=== PATIENT | male | born 1985 ===

== ENCOUNTER 2022-09-08 18:47 | Inpatient (IN) | payer OTHER, SELFPAY ==
[2022-09-08 18:54] VITALS: BP 117/94; PULSE 120; RESP 18; TEMP 36.6; O2SAT 95; BMI 25.8
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
[2022-09-08] MEDS: LORazepam 1 MG TABLET 2 MG PO (19:45)
[2022-09-08] MEDS: OLANZapine 10 MG TABLET PO (19:45)
[2022-09-08 20:10] LABS: COVID-19 Test Negative (Negative); IDNOW Serial# 08D9AD1C
[2022-09-09] VITALS (8 sets, daily range): BP systolic 103–131; BP diastolic 60–78; PULSE 75–105; RESP 15–18; TEMP 36.4–36.5; O2SAT 96–100
[2022-09-09] MEDS: LORazepam 1 MG TABLET PO (04:36)
[2022-09-09] MEDS: OLANZapine 10 MG TABLET PO (04:36)
[2022-09-09 04:47] LABS: Basophils Absolute Auto 0.1 X10*3/uL (0.0-0.2); Basophils Percent Auto 0.8 % (0-2); Eosinophils Absolute Auto 0.1 X10*3/uL (0.0-0.4); Hematocrit 47.7 % (42.0-52.0); Hemoglobin 16.2 g/dl (14.0-18.0); Imm Gran Abs Auto 0.08 X10*3/uL (0.00-0.03); Imm Gran Pct Auto 0.7 % (0.0-0.4); Lymphocytes Absolute Auto 3.3 X10*3/uL (1.2-4.9); Lymphocytes Percent Auto 27.3 % (20-40); MANUAL DIFF FLAG NO; Mean Corpuscular Hemoglobin 28.9 pg (27.0-33.0); Mean Corpuscular Volume 85.2 fL (80.0-98.0); Mean Platelet Volume 9.9 fL (9.4-12.4); Monocytes Absolute Auto 1.2 X10*3/uL (0.1-1.2); Monocytes Percent Auto 10.4 % (2-11); Neutrophils Absolute Auto 7.2 x10*3/uL (2.0-8.3); Neutrophils Percent Auto 59.8 % (45-73); Platelet Count 249 X10*3/uL (160-400); Red Cell Distribution Width 13.2 % (11.0-16.0)
--- NOTE | 2022-09-09 04:52 | PC.NURSE ---
Patient at the time arrival was manic, hyper-verbal, pressured speech, loud and disruptive, Olanzapine 10 mg PO and Ativan 2 mg PO administered at 1945 with + effect, slept through the night, woke up at 0415, restless and anxious, Olanzapine 10 mg PO and Ativan 1 mg PO administered @ 0436 with + effect, agreed to blood draw, unable to provide urine sample at tis time, care consult ordered/pending evaluation, VSS, will continue to monitor.
[2022-09-09 05:07] LABS: Alanine Aminotransferase 25 U/L (0-40); Albumin Level 5.1 g/dL (3.5-5.0); Alkaline Phosphatase 75 U/L (39-117); Anion Gap 16 (12-20); Aspartate Amino Transferase 27 U/L (5-37); Bilirubin Total 1.2 mg/dL (0.0-1.0); Blood Urea Nitrogen 37 mg/dL (9-16); Calcium 10.2 mg/dL (8.4-10.2); Carbon Dioxide 25 mmol/L (22-29); Chloride 104 mmol/L (96-108); Creatinine Clr Calc Pharmacy 80.2; Estimated Glomerular Filt Rate > 60; Ethanol < 10 mg/dL; Glucose Random 102 mg/dL (60-115); Potassium 4.1 mmol/L (3.3-5.1); Sodium 141 mmol/L (135-145); Total Protein 7.7 g/dL (6.5-8.0)
[2022-09-09 08:40] LABS: Appearance Urine Turbid; Color Urine Dark Yellow; Glucose Urine UA Negative (Negative); Leukocyte Esterase Urine Small (1+) (Negative); Nitrite Urine Negative (Negative); Specific Gravity - Urine >= 1.030 (1.005-1.025); UMIC TRIGGER UA YES; Urine Blood Large (3+) (Negative); Urine Ketones 15 mg/dL (Negative); Urine Protein 30 (1+) mg/dL (Neg-Trace)
[2022-09-09] MEDS: LORazepam 1 MG TABLET 2 MG PO (08:48)
[2022-09-09 08:49] LABS: Amphetamine Screen Urine POSITIVE (Not Detect); Barbiturates, Urine Not Detected (Not Detect); Benzodiazepines Screen Urine Not Detected (Not Detect); Cannabinoid Screen Urine POSITIVE (Not Detect); Cocaine Screen Urine Not Detected (Not Detect); Fentanyl, urine Not Detected (Not Detect); Opiate Screen Urine Not Detected (Not Detect); Phencyclidine Screen Urine Not Detected (Not Detect)
[2022-09-09 08:53] LABS: Bacteria Urine None Seen (None Seen); Granular Casts Urine Present; Hyaline Casts Urine >20 /LPF (0-2); RBC Urine >20 /HPF (0-2); Squamous Epithelial Cell Urine 0-2 /HPF (0-2); WBC Urine 21-50 /HPF (0-5)
[2022-09-09] MEDS: Haloperidol Lactate 5 MG/ML VIAL IM (09:16)
[2022-09-10] MEDS: OLANZapine ODT 10 MG TAB.RAPDIS TRANSLINGU ×3 (04:02→17:15)
--- NOTE | 2022-09-10 04:11 | PC.NURSE ---
Patient slept through the night, no distress observed/reported, just woke up for bathroom use and started screaming by stating Why I am here , patient disposition explained offered PRN olanzapine 10 mg po/accepted at 0402 with pending effect, mood extremely labile but redirectable, patient's disposition per care team is section 12 inpatient bed search, VSS, medication compliant, will continue to monitor.
[2022-09-10 04:14] VITALS: BP 129/81; PULSE 101; RESP 18; TEMP 36.7; O2SAT 99
--- NOTE | 2022-09-10 07:29 | PC.NURSE ---
Pt awake. Mood has improved. Social with Staff. Requesting anxiety med. PRN not due at this time. Pt able to self-sooth, back to bed watching TV at this time.
--- NOTE | 2022-09-10 08:18 | ECG_ITS ---
Test Reason : CHECK QT Blood Pressure : / mmHG Vent. Rate : 074 BPM Atrial Rate : 074 BPM P-R Int : 120 ms QRS Dur : 084 ms QT Int : 366 ms P-R-T Axes : 040 042 008 degrees QTc Int : 406 ms Normal sinus rhythm with sinus arrhythmia Normal ECG No previous ECGs available Referred By: Nestor Ray Electronically Signed By:Derian Yates
[2022-09-10 10:20] VITALS: BP 154/99; PULSE 115; RESP 16; TEMP 36.9; O2SAT 98
[2022-09-10 15:51] LABS: Appearance Urine Clear; Color Urine Yellow; Glucose Urine UA Negative (Negative); Leukocyte Esterase Urine Trace (Negative); Nitrite Urine Negative (Negative); Specific Gravity - Urine 1.015 (1.005-1.025); UMIC TRIGGER UACC YES; Urine Blood Negative (Negative); Urine Ketones Negative (Negative); Urine Protein Negative (Neg-Trace)
[2022-09-10 15:53] LABS: Bacteria Urine None Seen (None Seen); Hyaline Casts Urine 0-2 /LPF (0-2); RBC Urine 0-2 /HPF (0-2); Squamous Epithelial Cell Urine 0-2 /HPF (0-2); WBC Urine 0-5 /HPF (0-5)
[2022-09-10 16:38] VITALS: BMI 25.1
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
[2022-09-10 17:06] VITALS: BP 126/68; PULSE 82; RESP 16; TEMP 36.4; O2SAT 99
--- NOTE | 2022-09-10 17:10 | PC.NURSE ---
Pt submitted a Three Day Notice on Tuesday09/10/2022 up on Tuesday09/15/2022.
[2022-09-10] MEDS: LORazepam 1 MG TABLET PO (17:15)
[2022-09-11] MEDS: LORazepam 1 MG TABLET PO ×3 (04:44→16:10)
--- NOTE | 2022-09-11 04:46 | PC.NURSE ---
Patient awake pacing in room on 414 safety check. Respectfully, politely requests Benadryl for sleep at 4:35 at nursing station. Very easily agitated when asked how he is feeling I don't do small talk and never will, just get the pill. While removing med patient is heard stating how long does it f---ing take to get a pill, no one knows the system. Patient does not have wrist ID bracelet on, states is allergic to it. When told a new one will be printed, patient storms off to his room agitated. Returns with bracelet for scan. Patient calmly, politely says thank you for meds. Labile, anxious, easily agitated. Ativan administered as prescribed. Patient returns to room.
[2022-09-11 09:15] VITALS: BP 142/73; PULSE 76; RESP 16; TEMP 36.9; O2SAT 98
[2022-09-11] MEDS: OLANZapine ODT 10 MG TAB.RAPDIS TRANSLINGU ×2 (10:44→17:03)
[2022-09-11 12:55] LABS: Glucose, Whole Blood 223 mg/dL (60-115)
[2022-09-11] MEDS: hydrOXYzine HCL 25 MG TABLET PO (17:23)
[2022-09-11] MEDS: chlorproMAZINE HCl 25 MG TABLET 50 MG PO (18:05)
[2022-09-11 18:09] VITALS: BP 147/78; PULSE 109; TEMP 36.6
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
[2022-09-12] MEDS: hydrOXYzine HCL 25 MG TABLET PO ×2 (03:19→16:42)
[2022-09-12] MEDS: OLANZapine ODT 10 MG TAB.RAPDIS TRANSLINGU ×2 (07:26→20:11)
[2022-09-12] MEDS: Acetaminophen 325 MG TABLET 650 MG PO (07:26)
[2022-09-12] MEDS: LORazepam 1 MG TABLET PO ×3 (08:12→21:25)
[2022-09-12 08:42] VITALS: BP 143/93; PULSE 114; RESP 20; TEMP 35.6; O2SAT 97
--- NOTE | 2022-09-12 09:25 | HO.PSYCHPN ---
Subjective Subjective Date of Service: 09/12/22 Reason For Visit: agitation ? sandra Interim History: Patient seen and discussed with the team. Patient was less labile and more organized today. He says the medication is surprisingly smooth. He has been more composed. He says he he has a diagnosis of schizoaffective disorder but he has not been in treatment. Says because the medication is helpful for him he will take it post DC. Denies SI. Review of Systems Review of Systems Yes all other systems are reviewed and are negative Mental Status Exam Mental Status Exam Patient Appearance: Unkempt Patient Orientation: Person, Place and Time Level of Consciousness: Awake, Restless and Inappropriate Patient Behavior: Guarded, Hyperactive, Suspicious, Restless, Anxious, Fearful, Distractible and Good Eye Contact Mood Description: Suspicious, Anxious, Labile and Nervous Affect Description: Suspicious, Anxious, Labile and Nervous Patient Cognition Impaired: No Ability to Follow Directions: Good Speech Pattern: Clear, Coherent, Animated, Loud and Excited Diagnostics Vital Signs (24Hr): Vital Signs - 24 hr 09/11/22 18:09 09/12/22 08:42 Temperature 97.9 F 96.0 F L Pulse Rate 109 H 114 H Respiratory Rate 20 Blood Pressure 147/78 H 143/93 H Pulse Oximetry 97 Oxygen Delivery Method Room Air BMI result Body Mass Index 25.1 Labs 09/09/22 04:43 09/09/22 04:43 Labs: Laboratory Results - last 48 hr 09/10/22 09/11/22 15:37 12:52 POC Glucose 223 H Urine Color Yellow Urine Appearance Clear Urine pH 6.0 Ur Specific [place] 1.015 Urine Protein Negative Urine Glucose (UA) Negative Urine Ketones Negative Urine Blood Negative Urine Nitrite Negative Ur Leukocyte Esterase Trace H Urine RBC 0-2 Urine WBC 0-5 Ur Squamous Epith Cells 0-2 Urine Bacteria None Seen Hyaline Casts 0-2 Medications Medications Current Medications Acetaminophen (Acetaminophen 325 Mg Tablet) 650 mg PO Q6H PRN PRN Reason: Headache/Pain Mild Scale (1-3) Last Admin: 09/12/22 07:26 Dose: 650 mg Al Hydroxide/Mg Hydroxide (Magnesium Hydrox/Alum Hydrox 30 Ml Oral.Susp) 30 ml PO Q6H PRN PRN Reason: Heartburn/Nausea Benzocaine (Benzocaine 20 % Oral Gel 9 Gm Tube) 1 appl MUCOUS MEM QID PRN; Protocol PRN Reason: tooth pain Chlorpromazine HCl (Chlorpromazine Hcl 25 Mg Tablet) 50 mg PO TID PRN PRN Reason: severe anxiety Last Admin: 09/11/22 18:05 Dose: 50 mg Hydroxyzine HCl (Hydroxyzine Hcl 25 Mg Tablet) 25 mg PO Q6H PRN PRN Reason: Anxiety Last Admin: 09/12/22 03:19 Dose: 25 mg Ibuprofen (Ibuprofen 600 Mg Tablet) 600 mg PO Q6H PRN PRN Reason: toothache Lorazepam (Lorazepam 1 Mg Tablet) 1 mg PO TID PRN PRN Reason: anxiety/restlessness Last Admin: 09/12/22 08:12 Dose: 1 mg Magnesium Hydroxide (Milk Of Magnesia 30 Ml Oral.Susp) 30 ml PO DAILY PRN PRN Reason: Constipation Olanzapine (Olanzapine Odt 10 Mg Tab.Rapdis) 10 mg TRANSLINGU BID PRASHANTH Last Admin: 09/12/22 07:26 Dose: 10 mg Allergies Allergies Allergy/AdvReac Type Severity Reaction Status Date / Time No Known Allergies Allergy Verified 09/08/22 18:54 Assessment & Plan Assessment & Plan (1) Sandra: Status: Acute Code(s): F30.9 - Manic episode, unspecified (2) Psychosis: Status: Acute Code(s): F29 - Unspecified psychosis not due to a substance or known physiological condition Assessment and Plan: 37 yo male with reported past history of schizophrenia admitted with bizarre, paranoid and delusional behavior. Plan Admit to [facility] then signed a 3 day noticeInitially Collateral information to clarify past history and treatment Currently on Zyprexa and Ativan PRN. Agrees to take both as scheduled medications. Milieu therapy Discharge planning. 09/12: Continue treatment plan. Reason for continued inpatient stay Substantial Risk for: inability to function and rapid decompensation Time Spent With Patient Time: Total time managing care of this patient today ____ minutes.
[2022-09-12] MEDS: chlorproMAZINE HCl 25 MG TABLET 50 MG PO ×2 (14:34→20:11)
--- NOTE | 2022-09-12 21:19 | PC.NURSE ---
Pt started screaming I want to go home over and over around 2109. Pt would not respond to redirection, screaming at RN, then apologizing. Pt having outburst in group room. Pt offered PRNs and pt declined. Pt asked RN to leave the room, pt kept screaming. Pt eventually stopped screaming, walked down [place] insulting staff saying If you're at capacity the why are you holding me? I'm the sanest one here, I'm saner than most of the staff.... ect. Pt came back a few minutes later apologizing and asked for PRN and was given Ativan. Pt mood is labile, pt will go from laughing to crying to screaming. Will continue to monitor for safety.
[2022-09-13 07:40] VITALS: BP 154/105; PULSE 120; RESP 18; TEMP 36.3; O2SAT 97
[2022-09-13] MEDS: OLANZapine ODT 10 MG TAB.RAPDIS TRANSLINGU (07:48)
[2022-09-13] MEDS: LORazepam 1 MG TABLET PO ×2 (07:48→16:37)
--- NOTE | 2022-09-13 14:22 | P.PNPSI_ITS ---
Documented by User: Shilpa Lara NP 09/13/22 17:38 Subjective Subjective Date of Service: 09/13/22 Reason For Visit: agitation ? alanna Subjective Notes: [place] Warning Interim History: Patient sat down to speak with T/W in group room. Patient presented as irritable and guarded during brief 1:1. Patient stated, I want to leave. I'm sick of talking with people. God made me without medication and that's what I want . Patient then quickly got up from chair and left room. Review of Systems Review of Systems Yes all other systems are reviewed and are negative Mental Status Exam Mental Status Exam Patient Appearance: Disheveled Patient Orientation: Person, Place, Time and Situation Level of Consciousness: Awake and Alert Patient Behavior: Guarded, Resistive to Care, Avoidant and Good Eye Contact Mood Description: Angry Affect Description: Suspicious Ability to Follow Directions: Fair Speech Pattern: Rapid, Animated, Loud and Pressured Hallucinations: None Thought Process: Racing Thought Content: positive for Racing Judgement: Poor Judgement and Insight: Patient with poor insight and mood instability denies need for medication. Was labile and irritable, would not cooperate with mental status. Diagnostics Vital Signs (24Hr): Vital Signs - 24 hr 09/13/22 07:40 Temperature 97.4 F Pulse Rate 120 H Respiratory Rate 18 Blood Pressure 154/105 H Pulse Oximetry 97 Oxygen Delivery Method Room Air BMI result Body Mass Index 25.1 Labs 09/09/22 04:43 09/09/22 04:43 Medications Medications Current Medications Acetaminophen (Acetaminophen 325 Mg Tablet) 650 mg PO Q6H PRN PRN Reason: Headache/Pain Mild Scale (1-3) Last Admin: 09/12/22 07:26 Dose: 650 mg Al Hydroxide/Mg Hydroxide (Magnesium Hydrox/Alum Hydrox 30 Ml Oral.Susp) 30 ml PO Q6H PRN PRN Reason: Heartburn/Nausea Benzocaine (Benzocaine 20 % Oral Gel 9 Gm Tube) 1 appl MUCOUS MEM QID PRN; Protocol PRN Reason: tooth pain Chlorpromazine HCl (Chlorpromazine Hcl 25 Mg Tablet) 50 mg PO TID PRN PRN Reason: severe anxiety Last Admin: 09/12/22 20:11 Dose: 50 mg Hydroxyzine HCl (Hydroxyzine Hcl 25 Mg Tablet) 25 mg PO Q6H PRN PRN Reason: Anxiety Last Admin: 09/12/22 16:42 Dose: 25 mg Ibuprofen (Ibuprofen 600 Mg Tablet) 600 mg PO Q6H PRN PRN Reason: toothache Lorazepam (Lorazepam 1 Mg Tablet) 1 mg PO TID PRN PRN Reason: anxiety/restlessness Last Admin: 09/13/22 07:48 Dose: 1 mg Magnesium Hydroxide (Milk Of Magnesia 30 Ml Oral.Susp) 30 ml PO DAILY PRN PRN Reason: Constipation Olanzapine (Olanzapine Odt 10 Mg Tab.Rapdis) 10 mg TRANSLINGU BID [facility] Last Admin: 09/13/22 07:48 Dose: 10 mg Allergies Allergies Allergy/AdvReac Type Severity Reaction Status Date / Time No Known Allergies Allergy Verified 09/08/22 18:54 Assessment & Plan Assessment & Plan (1) Alanna: Status: Acute Code(s): F30.9 - Manic episode, unspecified Assessment and Plan: 37 yo male with reported past history of schizophrenia admitted with bizarre, paranoid and delusional behavior. Patient mother reports decompensating since June 2022 and concerned for his disorganization and impulsive behaviors. (2) Psychosis: Status: Acute Code(s): F29 - Unspecified psychosis not due to a substance or known physiological cond ition Plan CV then signed a 3 day notice Initially Collateral information to clarify past history and treatment Milieu therapy Discharge planning. 09/12: Continue treatment plan. 09/13: Continue Zyprexa 10mg BID. Added Depakote 500mg BID to decrease alanna. Patient educated on: medication risk/benefits Informed Consent: further education needed Reason for continued inpatient stay Substantial Risk for: med/psych decompensation Time Spent With Patient Time: Total time managing care of this patient today ____ minutes. Documented by User: Emir Jang MD 09/13/22 17:40 Subjective Subjective Reason For Visit: agitation ? alanna Subjective Notes: Conditional Voluntary and 3 Day Interim History: Patient sat down to speak with T/W in group room. Patient presented as irritable and guarded during brief 1:1. Patient stated, I want to leave. I'm sick of talking with people. God made me without medication and that's what I want . Patient then quickly got up from chair and left room. Patient did have period of significant mood lability last night was yelling at 1 of the nursing staff eventually calmed down. Patient has been taking olanzapine, was not clear he would be willing to take medication after discharge stating he did not need medication Medication Compliance: Yes Side effects from medications: No Attending Groups: Yes Review of Systems Acute medical concerns: No Mental Status Exam Mental Status Exam Mood Description: Labile Affect Description: Labile and Angry Diagnostics Labs 09/09/22 04:43 09/09/22 04:43 Assessment & Plan Assessment & Plan (1) Alanna: Status: Acute Code(s): F30.9 - Manic episode, unspecified (2) Psychosis: Status: Acute Code(s): F29 - Unspecified psychosis not due to a substance or known physiological condition Time Spent With Patient Time: Total time managing care of this patient today 30____ minutes.
[2022-09-13] MEDS: chlorproMAZINE HCl 25 MG TABLET 50 MG PO (16:37)
[2022-09-14] MEDS: chlorproMAZINE HCl 25 MG TABLET 50 MG PO ×4 (00:47→21:44)
[2022-09-14] MEDS: LORazepam 1 MG TABLET PO ×4 (00:47→21:44)
[2022-09-14] MEDS: Divalproex Sodium ER 500 MG TAB.ER.24H PO ×2 (08:33→21:44)
[2022-09-14] MEDS: OLANZapine ODT 10 MG TAB.RAPDIS TRANSLINGU ×2 (08:33→22:00)
[2022-09-14 08:37] VITALS: BP 146/87; PULSE 104; RESP 14; TEMP 36.5
[2022-09-14] MEDS: hydrOXYzine HCL 25 MG TABLET PO ×2 (11:56→21:44)
--- NOTE | 2022-09-14 15:37 | HO.PSYCHPN ---
Documented by User: Shilpa Lara NP 09/14/22 16:56 Subjective Subjective Date of Service: 09/14/22 Reason For Visit: agitation ? alanna Subjective Notes: 3 Day Interim History: Patient sat down to speak with T/W in group room. Patient presented as irritable and guarded during brief 1:1. Patient stated, I have disorganized thoughts but I want to leave . Patient then quickly got up from chair and left room. T/W and social attempted to speak with patient on multiple occasions, pt would put fingers in ears and walk away to not hear anything. Patient yelling at T/W you just want to keep me here for the upselling of this hospital! Patient would have periods of significant mood lability where he would yell at staff and then calm down but then begin to raise his voice again. At one point, patient went into corner of his room and began screaming loudly, I WANT TO GO HOME! repeatedly. Patient then laid down on floor and began to wail and scream. He then suddenly stopped, stood up and stated to T/W, get the fuck out of my room, get out of my face! . Patient refused Depakote and Zyprexa last evening, however, took medications this morning. Pt was asked to retract 3 day notice so that he could continue to receive treatment. Patient stated, Fuck no, I don't want to talk to you . Medication Compliance: Intermittent Attending Groups: Intermittent Review of Systems Review of Systems Yes all other systems are reviewed and are negative Mental Status Exam Mental Status Exam Patient Appearance: Disheveled Patient Orientation: Person, Place, Time and Situation Level of Consciousness: Awake and Alert Patient Behavior: Guarded, Swearing, Resistive to Care, Avoidant, Good Eye Contact and Pacing Mood Description: Labile Affect Description: Labile Patient Cognition Impaired: No Ability to Follow Directions: Poor Speech Pattern: Rapid, Animated, Loud and Pressured Thought Process: Racing Thought Content: positive for Disorganized Judgement: Poor Diagnostics Vital Signs (24Hr): Vital Signs - 24 hr 09/14/22 08:37 Temperature 97.7 F Pulse Rate 104 H Respiratory Rate 14 Blood Pressure 146/87 H BMI result Body Mass Index 25.1 Labs 09/09/22 04:43 09/09/22 04:43 Medications Medications Current Medications Acetaminophen (Acetaminophen 325 Mg Tablet) 650 mg PO Q6H PRN PRN Reason: Headache/Pain Mild Scale (1-3) Last Admin: 09/12/22 07:26 Dose: 650 mg Al Hydroxide/Mg Hydroxide (Magnesium Hydrox/Alum Hydrox 30 Ml Oral.Susp) 30 ml PO Q6H PRN PRN Reason: Heartburn/Nausea Benzocaine (Benzocaine 20 % Oral Gel 9 Gm Tube) 1 appl MUCOUS MEM QID PRN; Protocol PRN Reason: tooth pain Chlorpromazine HCl (Chlorpromazine Hcl 25 Mg Tablet) 50 mg PO Q4H PRN PRN Reason: severe anxiety Last Admin: 09/14/22 14:21 Dose: 50 mg Divalproex Sodium (Divalproex Sodium Er 500 Mg Tab.Er.24h) 500 mg PO BEDTIME [facility] Hydroxyzine HCl (Hydroxyzine Hcl 25 Mg Tablet) 25 mg PO Q6H PRN PRN Reason: Anxiety Last Admin: 09/14/22 11:56 Dose: 25 mg Ibuprofen (Ibuprofen 600 Mg Tablet) 600 mg PO Q6H PRN PRN Reason: toothache Lorazepam (Lorazepam 1 Mg Tablet) 1 mg PO TID PRN PRN Reason: anxiety/restlessness Last Admin: 09/14/22 10:16 Dose: 1 mg Magnesium Hydroxide (Milk Of Magnesia 30 Ml Oral.Susp) 30 ml PO DAILY PRN PRN Reason: Constipation Olanzapine (Olanzapine Odt 10 Mg Tab.Rapdis) 10 mg TRANSLINGU BID [facility] Last Admin: 09/14/22 08:33 Dose: 10 mg Allergies Allergies Allergy/AdvReac Type Severity Reaction Status Date / Time No Known Allergies Allergy Verified 09/08/22 18:54 Assessment & Plan Assessment & Plan (1) Alanna: Status: Acute Code(s): F30.9 - Manic episode, unspecified Assessment and Plan: 37 yo male with reported past history of schizophrenia admitted with bizarre, paranoid and delusional behavior. Patient mother reports decompensating since June 2022 and concerned for his disorganization and impulsive behaviors. (2) Psychosis: Status: Acute Code(s): F29 - Unspecified psychosis not due to a substance or known physiological condition Plan CV then signed a 3 day notice Initially Collateral information to clarify past history and treatment Milieu therapy Discharge planning. 09/12: Continue treatment plan. 09/13: Continue Zyprexa 10mg BID. Added Depakote 500mg BID to decrease alanna. 09/14: Spoke with pt about retracting 3 day notice. Continue mediations as ordered. Reason for continued inpatient stay Substantial Risk for: med/psych decompensation Time Spent With Patient Time: Total time managing care of this patient today ____ minutes. Documented by User: Emir Jang MD 09/14/22 21:20 Subjective Subjective Reason For Visit: agitation ? alanna Diagnostics Labs 09/09/22 04:43 09/09/22 04:43 Assessment & Plan Assessment & Plan (1) Alanna: Status: Acute Code(s): F30.9 - Manic episode, unspecified (2) Psychosis: Status: Acute Code(s): F29 - Unspecified psychosis not due to a substance or known physiological condition Plan CV then signed a 3 day notice Initially Collateral information to clarify past history and treatment Milieu therapy Discharge planning. 09/12: Continue treatment plan. 09/13: Continue Zyprexa 10mg BID. Added Depakote 500mg BID to decrease alanna. 09/14: Spoke with pt about retracting 3 day notice. Continue mediations as ordered. Assess patient's safety for discharge patient on a 3 day notice presents agitated irritable Not physically aggressive or threatening but unable to assess mental status for will not clarify issues prior to discharge such as walking in traffic would benefit from additional history from patient's mother who has a better sense of his baseline ? file for tx plan and sec 7-8 Informed Consent: does not understand Time Spent With Patient Time: Total time managing care of this patient today 30____ minutes.
[2022-09-14 21:45] VITALS: BP 134/86; PULSE 99; TEMP 36.3; O2SAT 98
--- NOTE | 2022-09-14 23:30 | PC.NURSE ---
Patient was quite agitated and angry with staff earlier in the shift. He was given prn Ativan and encouraged to relax. Patient ate his dinner and then went to sleep. When he woke up he was calmer and receptive to taking HS medications as well as prns. Patient has been in his room in bed, appears to be sleeping.
[2022-09-15] MEDS: chlorproMAZINE HCl 25 MG TABLET 50 MG PO ×2 (06:30→19:44)
[2022-09-15] MEDS: hydrOXYzine HCL 25 MG TABLET PO (06:30)
[2022-09-15 08:02] VITALS: BP 123/73; PULSE 100; RESP 16; TEMP 36.3; O2SAT 98
[2022-09-15] MEDS: OLANZapine ODT 10 MG TAB.RAPDIS TRANSLINGU ×2 (08:05→19:44)
[2022-09-15] MEDS: Divalproex Sodium ER 250 MG TAB.ER.24H 750 MG PO (10:30)
--- NOTE | 2022-09-15 13:37 | P.PNPSI_ITS ---
Subjective Subjective Date of Service: 09/15/22 Reason For Visit: agitation ? sandra Subjective Notes: Conditional Voluntary Interim History: Reviewed in team. Patient sat down to speak with T/W in group room. Patient presented as irritable and guarded during brief 1:1. Patient would have periods of significant mood lability such as putting himself on the floor and begin to wail and say he would like to go home, then stand up quickly and begin laughing. Pt was asked to retract 3 day notice so that he could continue to receive treatment, which pt agreed to. Patient stated, I don't know if I made the right choice. I just need my mother to take away my car because that's when I always get in trouble. That is what I 100% want. I feel like this place is [facility]. Which is good. Medication Compliance: Yes Side effects from medications: No Attending Groups: Yes Review of Systems Medical Review of Systems: unchanged Review of Systems Review of Systems Yes all other systems are reviewed and are negative Mental Status Exam Mental Status Exam Narrative: Patient walking around unit with shorts on turned inside out and backwards over his jeans. Also with a surgical face mask on his forehead. Patient Appearance: Disheveled Patient Orientation: Person, Place, Time and Situation Level of Consciousness: Awake and Alert Patient Behavior: Guarded, Cooperative, Suspicious, Resistive to Care, Avoidant, Good Eye Contact and Pacing Mood Description: Labile Affect Description: Labile Patient Cognition Impaired: No Ability to Follow Directions: Poor Speech Pattern: Rapid, Animated, Loud and Pressured Hallucinations: None Thought Process: Racing Thought Content: positive for Racing and positive for Disorganized Judgement: Poor Diagnostics Vital Signs (24Hr): Vital Signs - 24 hr 09/14/22 21:45 09/15/22 08:02 Temperature 97.4 F 97.4 F Pulse Rate 99 100 Respiratory Rate 16 Blood Pressure 134/86 123/73 Pulse Oximetry 98 98 Oxygen Delivery Method Room Air Room Air BMI result Body Mass Index 25.1 Labs 09/09/22 04:43 09/09/22 04:43 Medications Medications Current Medications Acetaminophen (Acetaminophen 325 Mg Tablet) 650 mg PO Q6H PRN PRN Reason: Headache/Pain Mild Scale (1-3) Last Admin: 09/12/22 07:26 Dose: 650 mg Al Hydroxide/Mg Hydroxide (Magnesium Hydrox/Alum Hydrox 30 Ml Oral.Susp) 30 ml PO Q6H PRN PRN Reason: Heartburn/Nausea Benzocaine (Benzocaine 20 % Oral Gel 9 Gm Tube) 1 appl MUCOUS MEM QID PRN; Protocol PRN Reason: tooth pain Chlorpromazine HCl (Chlorpromazine Hcl 25 Mg Tablet) 50 mg PO Q4H PRN PRN Reason: severe anxiety Last Admin: 09/15/22 06:30 Dose: 50 mg Divalproex Sodium (Divalproex Sodium Er 250 Mg Tab.Er.24h) 750 mg PO DAILY [facility] Hydroxyzine HCl (Hydroxyzine Hcl 25 Mg Tablet) 25 mg PO Q6H PRN PRN Reason: Anxiety Last Admin: 09/15/22 06:30 Dose: 25 mg Ibuprofen (Ibuprofen 600 Mg Tablet) 600 mg PO Q6H PRN PRN Reason: toothache Lorazepam (Lorazepam 1 Mg Tablet) 1 mg PO TID PRN PRN Reason: anxiety/restlessness Last Admin: 09/14/22 21:44 Dose: 1 mg Magnesium Hydroxide (Milk Of Magnesia 30 Ml Oral.Susp) 30 ml PO DAILY PRN PRN Reason: Constipation Olanzapine (Olanzapine Odt 10 Mg Tab.Rapdis) 10 mg TRANSLINGU BID [facility] Last Admin: 09/15/22 08:05 Dose: 10 mg Allergies Allergies Allergy/AdvReac Type Severity Reaction Status Date / Time No Known Allergies Allergy Verified 09/08/22 18:54 Assessment & Plan Assessment & Plan (1) Sandra: Status: Acute Code(s): F30.9 - Manic episode, unspecified Assessment and Plan: 37 yo male with reported past history of schizophrenia admitted with bizarre, paranoid and delusional behavior. Patient mother reports decompensating since June 2022 and concerned for his disorganization and impulsive behaviors. (2) Psychosis: Status: Acute Code(s): F29 - Unspecified psychosis not due to a substance or known physiological condition Plan CV then signed a 3 day notice Initially Collateral information to clarify past history and treatment Milieu therapy Discharge planning. 09/12: Continue treatment plan. 09/13: Continue Zyprexa 10mg BID. Added Depakote 500mg BID to decrease sandra. 09/14: Spoke with pt about retracting 3 day notice. Continue mediations as ordered. Assess patient's safety for discharge patient on a 3 day notice presents agitated irritable Not physically aggressive or threatening but unable to assess mental status for will not clarify issues prior to discharge such as walking in traffic would benefit from additional history from patient's mother who has a better sense of his baseline ? file for tx plan and sec 7-8 09/15: Pt retracted 3 day notice. Increased Depakote to 750mg PO daily. Continue medications as ordered. Continues to present as labile and only be able to tolerate very brief interactions. Patient has agreed to stay inpatient longer to receive treatment. Patient educated on: medication risk/benefits Informed Consent: further education needed Reason for continued inpatient stay Substantial Risk for: med/psych decompensation Time Spent With Patient Time: Total time managing care of this patient today ____ minutes.
[2022-09-15] MEDS: Ibuprofen 600 MG TABLET PO (16:22)
[2022-09-15] MEDS: LORazepam 1 MG TABLET PO ×2 (16:46→19:44)
[2022-09-15 18:00] VITALS: BP 154/76; PULSE 105; TEMP 36.4; O2SAT 95
--- NOTE | 2022-09-15 22:09 | PC.NURSE ---
Patient was noted to be walking quickly up and down the hallway, shortly after 153. He said he felt on edge . He was given prn Ativan and seemed appreciative of the help with medications. At 1930 patient said I'm getting really impatient right now and I want to take my meds and go to bed. Patient took his prescribed medications and went to bed.
[2022-09-16 07:00] VITALS: BMI 26.4
[2022-09-16 08:12] VITALS: BP 146/90; PULSE 109; RESP 16; TEMP 36.4; O2SAT 97
[2022-09-16] MEDS: Divalproex Sodium ER 250 MG TAB.ER.24H 750 MG PO (08:13)
[2022-09-16] MEDS: OLANZapine ODT 10 MG TAB.RAPDIS TRANSLINGU ×2 (08:14→19:57)
[2022-09-16] MEDS: chlorproMAZINE HCl 25 MG TABLET 50 MG PO (08:14)
[2022-09-16] MEDS: diphenhydrAMINE HCL 25 MG CAPSULE 50 MG PO (12:14)
[2022-09-16] MEDS: LORazepam 1 MG TABLET 2 MG PO (12:14)
[2022-09-16] MEDS: HaloperidoL 5 MG TABLET PO (12:14)
--- NOTE | 2022-09-16 14:05 | HO.PSYCHPN ---
Documented by User: Shilpa Lara NP 09/16/22 15:35 Subjective Subjective Date of Service: 09/16/22 Reason For Visit: agitation ? sandra Subjective Notes: Conditional Voluntary Interim History: Reviewed in team. Patient presented as irritable and guarded during brief 1:1. Patient would have periods of significant mood lability such as yelling and wailing loudly and demanding to leave to then joking and laughing with staff. Patient reports he smokes meth about every 3 days because I like to feel jacked up and I'm going to keep doing it when I leave cause I like it. Patient stated, I don't like being in here because I feel like I'm faster than everyone else in here and people are not as jacked up as me. Patient denies SI/HI/VH/AH at this time. Medication Compliance: Yes Side effects from medications: No Attending Groups: Yes Review of Systems Acute medical concerns: No Medical Review of Systems: unchanged Review of Systems Review of Systems Yes all other systems are reviewed and are negative Mental Status Exam Mental Status Exam Narrative: Patient walking around unit with shorts on over his long pants. Patient Appearance: Disheveled Patient Orientation: Person, Place, Time and Situation Level of Consciousness: Awake and Alert Patient Behavior: Guarded, Cooperative, Suspicious, Resistive to Care, Avoidant, Good Eye Contact and Pacing Mood Description: Labile Affect Description: Labile Patient Cognition Impaired: No Ability to Follow Directions: Poor Speech Pattern: Rapid, Animated, Loud and Pressured Hallucinations: None Delusions: Not Present Thought Process: Racing Thought Content: positive for Racing Judgement: Poor Diagnostics Vital Signs (24Hr): Vital Signs - 24 hr 09/15/22 18:00 09/16/22 08:12 Temperature 97.5 F 97.6 F Pulse Rate 105 H 109 H Respiratory Rate 16 Blood Pressure 154/76 H 146/90 H Pulse Oximetry 95 97 Oxygen Delivery Method Room Air Room Air BMI result Body Mass Index 25.1 Labs 09/09/22 04:43 09/09/22 04:43 Medications Medications Current Medications Acetaminophen (Acetaminophen 325 Mg Tablet) 650 mg PO Q6H PRN PRN Reason: Headache/Pain Mild Scale (1-3) Last Admin: 09/12/22 07:26 Dose: 650 mg Al Hydroxide/Mg Hydroxide (Magnesium Hydrox/Alum Hydrox 30 Ml Oral.Susp) 30 ml PO Q6H PRN PRN Reason: Heartburn/Nausea Benzocaine (Benzocaine 20 % Oral Gel 9 Gm Tube) 1 appl MUCOUS MEM QID PRN; Protocol PRN Reason: tooth pain Chlorpromazine HCl (Chlorpromazine Hcl 25 Mg Tablet) 50 mg PO Q4H PRN PRN Reason: severe anxiety Last Admin: 09/16/22 08:14 Dose: 50 mg Clonazepam (Clonazepam 0.5 Mg Tablet) 0.5 mg PO BID@0830,1430 [facility] Divalproex Sodium (Divalproex Sodium Er 250 Mg Tab.Er.24h) 750 mg PO DAILY [facility] Last Admin: 09/16/22 08:13 Dose: 750 mg Hydroxyzine HCl (Hydroxyzine Hcl 25 Mg Tablet) 25 mg PO Q6H PRN PRN Reason: Anxiety Last Admin: 09/15/22 06:30 Dose: 25 mg Ibuprofen (Ibuprofen 600 Mg Tablet) 600 mg PO Q6H PRN PRN Reason: toothache Last Admin: 09/15/22 16:22 Dose: 600 mg Magnesium Hydroxide (Milk Of Magnesia 30 Ml Oral.Susp) 30 ml PO DAILY PRN PRN Reason: Constipation Olanzapine (Olanzapine Odt 10 Mg Tab.Rapdis) 10 mg TRANSLINGU BID [facility] Last Admin: 09/16/22 08:14 Dose: 10 mg Allergies Allergies Allergy/AdvReac Type Severity Reaction Status Date / Time No Known Allergies Allergy Verified 09/08/22 18:54 Assessment & Plan Assessment & Plan (1) Sandra: Status: Acute Code(s): F30.9 - Manic episode, unspecified Assessment and Plan: 37 yo male with reported past history of schizophrenia admitted with bizarre, paranoid and delusional behavior. Patient mother reports decompensating since June 2022 and concerned for his disorganization and impulsive behaviors. (2) Psychosis: Status: Acute Code(s): F29 - Unspecified psychosis not due to a substance or known physiological condition Plan CV then signed a 3 day notice Initially Collateral information to clarify past history and treatment Milieu therapy Discharge planning. 09/12: Continue treatment plan. 09/13: Continue Zyprexa 10mg BID. Added Depakote 500mg BID to decrease sandra. 09/14: Spoke with pt about retracting 3 day notice. Continue mediations as ordered. Assess patient's safety for discharge patient on a 3 day notice presents agitated irritable Not physically aggressive or threatening but unable to assess mental status for will not clarify issues prior to discharge such as walking in traffic would benefit from additional history from patient's mother who has a better sense of his baseline ? file for tx plan and sec 7-8 09/15: Pt retracted 3 day notice. Increased Depakote to 750mg PO daily. Continue medications as ordered. Continues to present as labile and only be able to tolerate very brief interactions. Patient has agreed to stay inpatient longer to receive treatment. 09/16: Patient willingly took Haldol 5mg PO, Ativan 2mg PO, Benadryl 50mg PO at 1204 due to increased agitation/distress. No side effects noted at this time. Continue Depakote 750mg PO daily. DC Ativan Start Klonopin 0.5mg PO BID Ordered Valporic acid level, Liver panel and ammonia level to be drawn tomorrow. Patient educated on: medication risk/benefits Informed Consent: further education needed Reason for continued inpatient stay Substantial Risk for: med/psych decompensation Time Spent With Patient Time: Total time managing care of this patient today ____ minutes. Documented by User: Gianfranco Emmanuel MD 09/17/22 15:28 Subjective Subjective Reason For Visit: agitation ? sandra Diagnostics Labs 09/09/22 04:43 09/09/22 04:43 Assessment & Plan Assessment & Plan (1) Sandra: Status: Acute Code(s): F30.9 - Manic episode, unspecified (2) Psychosis: Status: Acute Code(s): F29 - Unspecified psychosis not due to a substance or known physiological condition Plan patient is a 37-year-old male with history of bipolar disorder, methamphetamine abuse who presents with manic behaviors PLAN: CV q15min checks Continue Depakote ER 750mg PO daily. -will order Depakote level and associated labwork Will DC zyprexa and start Haldol as it helped him calm down today when dysregulated START Haldol 5mg BID for help w/ agitation/sandra Start Clonazepam 0.5mg BID 0900/1400 for help w/ sandra DC ativan Collateral information to clarify past history and treatment Milieu therapy Discharge planning. HOSPITAL COURSE: 09/12: Continue treatment plan. 09/13: Continue Zyprexa 10mg BID. Added Depakote 500mg BID to decrease sandra. 09/14: Spoke with pt about retracting 3 day notice. Continue mediations as ordered. Assess patient's safety for discharge patient on a 3 day notice presents agitated irritable Not physically aggressive or threatening but unable to assess mental status for will not clarify issues prior to discharge such as walking in traffic would benefit from additional history from patient's mother who has a better sense of his baseline ? file for tx plan and sec 7-8 09/15: Pt retracted 3 day notice. Increased Depakote to 750mg PO daily. Continue medications as ordered. Continues to present as labile and only be able to tolerate very brief interactions. Patient has agreed to stay inpatient longer to receive treatment. 09/16: remains manic; Patient willingly took Haldol 5mg PO, Ativan 2mg PO, Benadryl 50mg PO at 1204 due to increased agitation/distress. No side effects noted at this time. haldol seemed to help calm patient so will schedule and dc zyprexa Soft Sugar Operator Head discussed case with WIRE CUTTER; met with patient; hand sign writer agrees with treatment plan
[2022-09-16] MEDS: clonazePAM 0.5 MG TABLET PO (14:06)
[2022-09-16 15:00] VITALS: RESP 16
[2022-09-16 16:36] VITALS: BP 121/67; PULSE 99
[2022-09-16] MEDS: hydrOXYzine HCL 25 MG TABLET PO (21:53)
[2022-09-17] MEDS: hydrOXYzine HCL 25 MG TABLET PO ×2 (04:26→20:55)
[2022-09-17 08:05] VITALS: BP 141/73; PULSE 103; RESP 16; TEMP 36.3; O2SAT 96
[2022-09-17] MEDS: Divalproex Sodium ER 250 MG TAB.ER.24H 750 MG PO (08:12)
[2022-09-17] MEDS: OLANZapine ODT 10 MG TAB.RAPDIS TRANSLINGU (08:12)
[2022-09-17] MEDS: clonazePAM 0.5 MG TABLET PO (08:12)
[2022-09-17] MEDS: chlorproMAZINE HCl 25 MG TABLET 50 MG PO (11:03)
[2022-09-17] MEDS: LORazepam 1 MG TABLET 2 MG PO (11:45)
[2022-09-17] MEDS: HaloperidoL 5 MG TABLET PO (11:45)
[2022-09-17] MEDS: diphenhydrAMINE HCL 25 MG CAPSULE 50 MG PO (11:45)
--- NOTE | 2022-09-17 11:47 | PC.NURSE ---
at approximately 11:35 PT reported to nurse that he refused to take any further medications until he was given a release date, Even inmates have release dates. This is bullsh*t . Pt then began to run, full speed, up and down the hallway screaming Let me the f*ck out of here, you're all f*cking idiots, why is everyone just standing around pt was attempted to be redirected with no effect. Pt entered shower A nd began screaming and reiterating his intent to be discharged. Provider was notified and a one time PO dose of Benadryl 50mg Ativan 2mg, and Haldol 5mg was ordered and administered. Pt then went to his room to calm himself. Will continue to monitor.
--- NOTE | 2022-09-17 12:30 | P.PNPSI_ITS ---
Documented by User: Shilpa Lara NP 09/17/22 15:29 Subjective Subjective Date of Service: 09/17/22 Reason For Visit: agitation ? sandra Subjective Notes: Conditional Voluntary Interim History: Reviewed in team. Patient presented as irritable and guarded during brief 1:1. Patient would have periods of significant mood lability such as yelling and wailing loudly and demanding to leave to then joking and laughing with staff. Patient observed sprinting up and down the unit hallway, screaming that he wants to leave and does not want to take medications. Patient would use profanity towards staff; walking with fingers in his ears when staff would attempt to speak with him. Patient denies SI/HI/VH/AH at this time. Attending Groups: Yes Review of Systems Medical Review of Systems: unchanged Review of Systems Review of Systems Yes all other systems are reviewed and are negative Mental Status Exam Mental Status Exam Narrative: Patient walking around unit with shorts on over his long pants. Patient Appearance: Disheveled Patient Orientation: Person, Place, Time and Situation Level of Consciousness: Awake and Alert Patient Behavior: Guarded, Cooperative, Suspicious, Swearing, Resistive to Care, Avoidant, Good Eye Contact and Pacing Mood Description: Labile Affect Description: Labile Patient Cognition Impaired: No Ability to Follow Directions: Poor Speech Pattern: Rapid, Animated, Loud and Pressured Hallucinations: None Thought Process: Racing Thought Content: positive for Perseveration Judgement: Poor Diagnostics Vital Signs (24Hr): Vital Signs - 24 hr 09/16/22 15:00 09/16/22 16:36 09/17/22 08:05 Temperature 97.3 F Pulse Rate 99 103 H Respiratory Rate 16 16 Blood Pressure 121/67 141/73 H Pulse Oximetry 96 Oxygen Delivery Method Room Air BMI result Body Mass Index 26.4 Labs 09/09/22 04:43 09/09/22 04:43 Medications Medications Current Medications Acetaminophen (Acetaminophen 325 Mg Tablet) 650 mg PO Q6H PRN PRN Reason: Headache/Pain Mild Scale (1-3) Last Admin: 09/12/22 07:26 Dose: 650 mg Al Hydroxide/Mg Hydroxide (Magnesium Hydrox/Alum Hydrox 30 Ml Oral.Susp) 30 ml PO Q6H PRN PRN Reason: Heartburn/Nausea Benzocaine (Benzocaine 20 % Oral Gel 9 Gm Tube) 1 appl MUCOUS MEM QID PRN; Protocol PRN Reason: tooth pain Chlorpromazine HCl (Chlorpromazine Hcl 25 Mg Tablet) 50 mg PO Q4H PRN PRN Reason: severe anxiety Last Admin: 09/17/22 11:03 Dose: 50 mg Clonazepam (Clonazepam 0.5 Mg Tablet) 0.5 mg PO BID@0830,1430 [facility] Last Admin: 09/17/22 08:12 Dose: 0.5 mg Divalproex Sodium (Divalproex Sodium Er 250 Mg Tab.Er.24h) 750 mg PO DAILY [facility] Last Admin: 09/17/22 08:12 Dose: 750 mg Hydroxyzine HCl (Hydroxyzine Hcl 25 Mg Tablet) 25 mg PO Q6H PRN PRN Reason: Anxiety Last Admin: 09/17/22 04:26 Dose: 25 mg Ibuprofen (Ibuprofen 600 Mg Tablet) 600 mg PO Q6H PRN PRN Reason: toothache Last Admin: 09/15/22 16:22 Dose: 600 mg Magnesium Hydroxide (Milk Of Magnesia 30 Ml Oral.Susp) 30 ml PO DAILY PRN PRN Reason: Constipation Olanzapine (Olanzapine Odt 10 Mg Tab.Rapdis) 10 mg TRANSLINGU BID [facility] Last Admin: 09/17/22 08:12 Dose: 10 mg Allergies Allergies Allergy/AdvReac Type Severity Reaction Status Date / Time No Known Allergies Allergy Verified 09/08/22 18:54 Assessment & Plan Assessment & Plan (1) Sandra: Status: Acute Code(s): F30.9 - Manic episode, unspecified Assessment and Plan: 37 yo male with reported past history of schizophrenia admitted with bizarre, paranoid and delusional behavior. Patient mother reports decompensating since June 2022 and concerned for his disorganization and impulsive behaviors. (2) Psychosis: Status: Acute Code(s): F29 - Unspecified psychosis not due to a substance or known physiological condition Plan patient is a 37-year-old male with history of bipolar disorder, methamphetamine abuse who presents with manic behaviors PLAN: 3 day notice q15min checks Will DC zyprexa and start Haldol as it helped him calm down today when dysregulated START Haldol 5mg PO BID PRN help w/ agitation/sandra Start Clonazepam 1mg BID 0900/1400 for help w/ sandra Start Ativan 2mg PO Q4hr PRN for agitiation Start Benadryl 50mg Q6hr PRN for EPS DC Depakote (not helping with sandra) Start [place] ER 300mg PO BID for sandra Collateral information to clarify past history and treatment Milieu therapy Discharge planning. HOSPITAL COURSE: 09/12: Continue treatment plan. 09/13: Continue Zyprexa 10mg BID. Added Depakote 500mg BID to decrease sandra. 09/14: Spoke with pt about retracting 3 day notice. Continue mediations as ordered. Assess patient's safety for discharge patient on a 3 day notice prese nts agitated irritable Not physically aggressive or threatening but unable to assess mental status for will not clarify issues prior to discharge such as walking in traffic would benefit from additional history from patient's mother who has a better sense of his baseline ? file for tx plan and sec 7-8 09/15: Pt retracted 3 day notice. Increased Depakote to 750mg PO daily. Continue medications as ordered. Continues to present as labile and only be able to tolerate very brief interactions. Patient has agreed to stay inpatient longer to receive treatment. 09/16: remains manic; Patient willingly took Haldol 5mg PO, Ativan 2mg PO, Benadryl 50mg PO at 1204 due to increased agitation/distress. No side effects noted at this time. haldol seemed to help calm patient so will schedule and dc zyprexa 09/17: remains manic; Patient willingly took Haldol 5mg PO, Ativan 2mg PO, Benadryl 50mg PO at 1139 due to increased agitation/distress. No side effects noted at this time. signed 3 day notice. Starting patient on lithium d/t depakote not decreasing sandra symptoms. Security Sme discussed case with AGRICULTURAL PRODUCE WASHER; met with patient; proposal writer agrees with treatment plan Time Spent With Patient Time: Total time managing care of this patient today ____ minutes. Documented by User: Gianfranco Emmanuel MD 09/17/22 15:31 Subjective Subjective Reason For Visit: agitation ? sandra Subjective Notes: Conditional Voluntary and 3 Day Interim History: Reviewed in team. Patient presented as irritable and guarded during brief 1:1. Patient would have periods of significant mood lability such as yelling and wailing loudly and demanding to leave to then joking and laughing with staff. Patient observed sprinting up and down the unit hallway, screaming that he wants to leave, laying on the floor cyring... and said he does not want to take medications. Patient would use profanity towards staff; walking with fingers in his ears when staff would attempt to speak with him. Patient denies SI/HI/VH/AH at this time. Mental Status Exam Mental Status Exam Patient Behavior: Hyperactive Diagnostics Labs 09/09/22 04:43 09/09/22 04:43 Assessment & Plan Assessment & Plan (1) Sandra: Status: Acute Code(s): F30.9 - Manic episode, unspecified (2) Psychosis: Status: Acute Code(s): F29 - Unspecified psychosis not due to a substance or known physiological condition Plan patient is a 37-year-old male with history of bipolar disorder, methamphetamine abuse who presents with manic behaviors PLAN: 3 day notice q15min checks Will DC zyprexa and start Haldol as it helped him calm down today when dysregulated START Haldol 5mg PO BID PRN help w/ agitation/sandra Start Clonazepam 1mg BID 0900/1400 for help w/ sandra Start Ativan 2mg PO Q4hr PRN for agitiation Start Benadryl 50mg Q6hr PRN for EPS DC Depakote (not helping with sandra) Start [place] ER 300mg PO BID for sandra Collateral information to clarify past history and treatment Milieu therapy Discharge planning. HOSPITAL COURSE: 09/12: Continue treatment plan. 09/13: Continue Zyprexa 10mg BID. Added Depakote 500mg BID to decrease sandra. 09/14: Spoke with pt about retracting 3 day notice. Continue mediations as ordered. Assess patient's safety for discharge patient on a 3 day notice pres ents agitated irritable Not physically aggressive or threatening but unable to assess mental status for will not clarify issues prior to discharge such as walking in traffic would benefit from additional history from patient's mother who has a better sense of his baseline ? file for tx plan and sec 7-8 09/15: Pt retracted 3 day notice. Increased Depakote to 750mg PO daily. Continue medications as ordered. Continues to present as labile and only be able to tolerate very brief interactions. Patient has agreed to stay inpatient longer to receive treatment. 09/16: remains manic; Patient willingly took Haldol 5mg PO, Ativan 2mg PO, Benadryl 50mg PO at 1204 due to increased agitation/distress. No side effects noted at this time. haldol seemed to help calm patient so will schedule and dc zyprexa 09/17: remains manic; Patient willingly took Haldol 5mg PO, Ativan 2mg PO, Benadryl 50mg PO at 1139 due to increased agitation/distress. No side effects noted at this time. signed 3 day notice. Starting patient on lithium d/t depakote not decreasing sandra symptoms. Security Sme discussed case with AGRICULTURAL PRODUCE WASHER; met with patient; proposal writer agrees with treatment plan Patient educated on: diagnosis and medication risk/benefits Informed Consent: understands, does not understand and further education needed Reason for continued inpatient stay Substantial Risk for: inability to function
--- NOTE | 2022-09-17 12:35 | PC.NURSE ---
Pt given [employer] engineering team supervisor phone number and offered assistance with calling. Pt placed phone call from nurses station phones.
--- NOTE | 2022-09-17 14:33 | PC.NURSE ---
pt signed a 3day notice on Tuesday09/17/22. UP on Tuesday09/22/22. PIPE TESTING TECHNICIAN. HETAL, & UR aware
[2022-09-17] MEDS: clonazePAM 1 MG TABLET PO (14:36)
[2022-09-17] MEDS: Lithium Carbonate ER 300 MG TABLET.ER PO ×2 (14:42→18:15)
[2022-09-17] MEDS: Benzocaine 20 % Oral Gel 9 GM TUBE 1 APPL MUCOUS MEM (14:48)
[2022-09-17] MEDS: Acetaminophen 325 MG TABLET 650 MG PO (14:48)
[2022-09-17 18:00] VITALS: BP 124/83; PULSE 104
[2022-09-18] MEDS: LORazepam 1 MG TABLET 2 MG PO ×3 (03:14→18:08)
[2022-09-18] MEDS: diphenhydrAMINE HCL 25 MG CAPSULE 50 MG PO (03:15)
[2022-09-18 07:26] LABS: Valproate 38.4 mcg/mL (50.0-100.0)
[2022-09-18 07:29] LABS: Alanine Aminotransferase 28 U/L (0-40); Albumin Level 4.2 g/dL (3.5-5.0); Alkaline Phosphatase 73 U/L (39-117); Aspartate Amino Transferase 23 U/L (5-37); Bilirubin Direct 0.1 mg/dL (0.0-0.5); Bilirubin Total 0.4 mg/dL (0.0-1.0); Total Protein 6.4 g/dL (6.5-8.0)
[2022-09-18 07:44] LABS: Ammonia 50 umol/L (13-55)
[2022-09-18] MEDS: Lithium Carbonate ER 300 MG TABLET.ER PO ×2 (08:06→20:05)
[2022-09-18] MEDS: clonazePAM 1 MG TABLET PO ×2 (08:06→14:04)
[2022-09-18 08:35] VITALS: BP 131/80; PULSE 110; RESP 18; TEMP 36.5; O2SAT 97
--- NOTE | 2022-09-18 09:23 | P.PNPSI_ITS ---
Subjective Subjective Date of Service: 09/18/22 Reason For Visit: agitation ? sandra Interim History: Patient; discussed with teams Patient seems to be doing a little better today. More organized and much less labile. Typically patient has periodic bouts of extreme dysregulation however today none so far; he asked for a p.r.n. in order to stay in control. Patient talked about medication with senior writer and he is not sure if he is feeling any differently on the lithium but agrees to continue with it for now. Also differently, he said he does not need to know a specific date for discharge but only to be reassured that the plan is to discharge him as soon as possible; patient accepted senior writer's explanation that the goal is to see him back to his regular self and able to remain stable. Mental Status Exam Mental Status Exam Narrative: Pt is alert and oriented; behavior is cooperative, friendly; still hyperactive but less so and no dysregulated outbursts; dressed in casual attire with shorts on over his parents; adequate hygiene; mood is described as okay and affect constricted; eye contact appropriate; Speech is pressured but patient is able to be interrupted and have a given take conversation; normal volume and prosody; remains with psychomotor agitation present; thought process is more organized and goal directed; Thought content is on tx; otherwise more able to remain pertinent to relevant topics; no delusional thinking expressed; denies any SI/HI. There is no evidence of perceptual disturbance. Patients insight and judgment impaired but improving Diagnostics Vital Signs (24Hr): Vital Signs - 24 hr 09/17/22 18:00 09/18/22 08:35 Temperature 97.7 F Pulse Rate 104 H 110 H Respiratory Rate 18 Blood Pressure 124/83 131/80 Pulse Oximetry 97 Oxygen Delivery Method Room Air BMI result Body Mass Index 26.4 Labs 09/09/22 04:43 09/09/22 04:43 Labs: Laboratory Results - last 48 hr 09/18/22 09/18/22 09/18/22 06:45 06:45 07:29 Total Bilirubin 0.4 Direct Bilirubin 0.1 AST 23 ALT 28 Alkaline Phosphatase 73 Ammonia 50 Total Protein 6.4 L Albumin 4.2 Valproic Acid 38.4 L Medications Medications Current Medications Acetaminophen (Acetaminophen 325 Mg Tablet) 650 mg PO Q6H PRN PRN Reason: Headache/Pain Mild Scale (1-3) Last Admin: 09/17/22 14:48 Dose: 650 mg Al Hydroxide/Mg Hydroxide (Magnesium Hydrox/Alum Hydrox 30 Ml Oral.Susp) 30 ml PO Q6H PRN PRN Reason: Heartburn/Nausea Benzocaine (Benzocaine 20 % Oral Gel 9 Gm Tube) 1 appl MUCOUS MEM QID PRN; Protocol PRN Reason: tooth pain Last Admin: 09/17/22 14:48 Dose: 1 appl Clonazepam (Clonazepam 1 Mg Tablet) 1 mg PO BID@0830,1430 [facility] Last Admin: 09/18/22 08:06 Dose: 1 mg Diphenhydramine HCl (Diphenhydramine Hcl 25 Mg Capsule) 50 mg PO Q6H PRN PRN Reason: EPS Last Admin: 09/18/22 03:15 Dose: 50 mg Haloperidol (Haloperidol 5 Mg Tablet) 5 mg PO BID PRN PRN Reason: agitation Hydroxyzine HCl (Hydroxyzine Hcl 25 Mg Tablet) 25 mg PO Q6H PRN PRN Reason: Anxiety Last Admin: 09/17/22 20:55 Dose: 25 mg [place] Carbonate ([place] Carbonate Er 300 Mg Tablet.Er) 300 mg PO BID [facility] Last Admin: 09/18/22 08:06 Dose: 300 mg Lorazepam (Lorazepam 1 Mg Tablet) 2 mg PO Q4H PRN PRN Reason: agitation Last Admin: 09/18/22 03:14 Dose: 2 mg Magnesium Hydroxide (Milk Of Magnesia 30 Ml Oral.Susp) 30 ml PO DAILY PRN PRN Reason: Constipation Allergies Allergies Allergy/AdvReac Type Severity Reaction Status Date / Time No Known Allergies Allergy Verified 09/08/22 18:54 Assessment & Plan Assessment & Plan (1) Sandra: Status: Acute Code(s): F30.9 - Manic episode, unspecified Assessment and Plan: 37 yo male with reported past history of schizophrenia admitted with bizarre, paranoid and delusional behavior. Patient mother reports decompensating since June 2022 and concerned for his disorganization and impulsive behaviors. (2) Psychosis: Status: Acute Code(s): F29 - Unspecified psychosis not due to a substance or known physiological condition Plan patient is a 37-year-old male with history of bipolar disorder, methamphetamine abuse who presents with manic behaviors PLAN: 3 day notice q15min checks Continue [place] ER 300mg PO BID for sandra (if proves effective and tolerated, will discuss with patient if he prefers bedtime dosing) Continue Haldol 5mg PO BID PRN help w/ agitation/sandra Continue Clonazepam 1mg BID 0900/1400 for help w/ sandra Continue Ativan 2mg PO Q4hr PRN for agitiation Continue Benadryl 50mg Q6hr PRN for EPS DC Depakote (not helping with sandra) DC zyprexa (not that helpful) Collateral information to clarify past history and treatment Milieu therapy Discharge planning. HOSPITAL COURSE: 09/12: Continue treatment plan. 09/13: Continue Zyprexa 10mg BID. Added Depakote 500mg BID to decrease sandra. 09/14: Spoke with pt about retracting 3 day notice. Continue mediations as ordered. Assess patient's safety for discharge patient on a 3 day notice presents agitated irritable Not physically aggressive or threatening but unable to assess mental status for will not clarify issues prior to discharge such as walking in traffic would benefit from additional history from patient's mother who has a better sense of his baseline ? file for tx plan and sec 7-8 09/15: Pt retracted 3 day notice. Increased Depakote to 750mg PO daily. Continue medications as ordered. Continues to present as labile and only be able to tawanna erate very brief interactions. Patient has agreed to stay inpatient longer to receive treatment. 09/16: remains manic; Patient willingly took Haldol 5mg PO, Ativan 2mg PO, Benadryl 50mg PO at 1204 due to increased agitation/distress. No side effects noted at this time. haldol seemed to help calm patient so will schedule and dc zyprexa 09/17: remains manic; Patient willingly took Haldol 5mg PO, Ativan 2mg PO, Benadryl 50mg PO at 1139 due to increased agitation/distress. No side effects noted at this time. signed 3 day notice. Starting patient on lithium d/t depakote not decreasing sandra symptoms. 09/18 cautiously hopeful that patient is improving now on lithium; while it remains possible that Depakote (revealed to be subtherapeutic) had become finally effective, now that patient has been started on lithium some of the manic symptoms seem to be lessening; for now will continue with lithium (can always we had Depakote if needed) and monitor. Haldol remains helpful as a p.r.n.. Patient educated on: diagnosis, medication risk/benefits, substance abuse and therapeutic strategies Informed Consent: understands Reason for continued inpatient stay Substantial Risk for: rapid decompensation Time Spent With Patient Time: Total time managing care of this patient today ____ minutes.
[2022-09-18] MEDS: HaloperidoL 5 MG TABLET PO (14:23)
[2022-09-18] MEDS: hydrOXYzine HCL 25 MG TABLET PO (15:48)
[2022-09-18 18:00] VITALS: BP 128/68; PULSE 72; RESP 16; TEMP 36.4; O2SAT 98
[2022-09-19] MEDS: clonazePAM 1 MG TABLET PO ×2 (07:52→14:22)
[2022-09-19] MEDS: Lithium Carbonate ER 300 MG TABLET.ER PO ×2 (07:52→19:29)
[2022-09-19 08:16] VITALS: BP 117/77; PULSE 96; RESP 16; TEMP 36.5; O2SAT 98
--- NOTE | 2022-09-19 14:24 | P.PNPSI_ITS ---
Subjective Subjective Date of Service: 09/19/22 Reason For Visit: agitation ? sandra Interim History: Met with patient; discussed with team Patient again is in much improved behavioral and impulse control. No longer running up and down the hallways; no bouts of extreme dysregulation. Today patient said he was feeling a little on the verge of getting dysregulated and asked for a p.r.n. and then able to calm himself down. Patient discussed discharge with job specification writer. He says he very much hopes he can go home when his 3 day notice is due. He feels that medications are helpful and says he will continue taking them. Patient slept through the night Mental Status Exam Mental Status Exam Narrative: Pt is alert and oriented; behavior is cooperative, friendly; still hyperactive but less so and no dysregulated outbursts; dressed in casual attire with shorts on over his parents; adequate hygiene; mood is described as okay and affect constricted; eye contact appropriate; Speech is a little pressured but much less so; normal volume and prosody; some moderate psychomotor agitation present; thought process is mostly organized and goal directed; Thought content is on tx, discharge; otherwise remains pertinent to relevant topics; no delusional thinking expressed; denies any SI/HI. There is no evidence of perceptual disturbance. Patients insight and judgment impaired but improving Diagnostics Vital Signs (24Hr): Vital Signs - 24 hr 09/18/22 18:00 09/19/22 08:16 Temperature 97.6 F 97.7 F Pulse Rate 72 96 Respiratory Rate 16 16 Blood Pressure 128/68 117/77 Pulse Oximetry 98 98 Oxygen Delivery Method Room Air Room Air BMI result Body Mass Index 26.4 Labs 09/09/22 04:43 09/09/22 04:43 Labs: Laboratory Results - last 48 hr 09/18/22 09/18/22 09/18/22 06:45 06:45 07:29 Total Bilirubin 0.4 Direct Bilirubin 0.1 AST 23 ALT 28 Alkaline Phosphatase 73 Ammonia 50 Total Protein 6.4 L Albumin 4.2 Valproic Acid 38.4 L Medications Medications Current Medications Acetaminophen (Acetaminophen 325 Mg Tablet) 650 mg PO Q6H PRN PRN Reason: Headache/Pain Mild Scale (1-3) Last Admin: 09/17/22 14:48 Dose: 650 mg Al Hydroxide/Mg Hydroxide (Magnesium Hydrox/Alum Hydrox 30 Ml Oral.Susp) 30 ml PO Q6H PRN PRN Reason: Heartburn/Nausea Benzocaine (Benzocaine 20 % Oral Gel 9 Gm Tube) 1 appl MUCOUS MEM QID PRN; Protocol PRN Reason: tooth pain Last Admin: 09/17/22 14:48 Dose: 1 appl Clonazepam (Clonazepam 1 Mg Tablet) 1 mg PO BID@0830,1430 [facility] Last Admin: 09/19/22 14:22 Dose: 1 mg Diphenhydramine HCl (Diphenhydramine Hcl 25 Mg Capsule) 50 mg PO Q6H PRN PRN Reason: EPS Last Admin: 09/18/22 03:15 Dose: 50 mg Haloperidol (Haloperidol 5 Mg Tablet) 5 mg PO BID PRN PRN Reason: agitation Last Admin: 09/18/22 14:23 Dose: 5 mg Hydroxyzine HCl (Hydroxyzine Hcl 25 Mg Tablet) 25 mg PO Q6H PRN PRN Reason: Anxiety Last Admin: 09/18/22 15:48 Dose: 25 mg [place] Carbonate ([place] Carbonate Er 300 Mg Tablet.Er) 300 mg PO BID [facility] Last Admin: 09/19/22 07:52 Dose: 300 mg Lorazepam (Lorazepam 1 Mg Tablet) 2 mg PO Q4H PRN PRN Reason: agitation Last Admin: 09/18/22 18:08 Dose: 2 mg Magnesium Hydroxide (Milk Of Magnesia 30 Ml Oral.Susp) 30 ml PO DAILY PRN PRN Reason: Constipation Allergies Allergies Allergy/AdvReac Type Severity Reaction Status Date / Time No Known Allergies Allergy Verified 09/08/22 18:54 Assessment & Plan Assessment & Plan (1) Sandra: Status: Acute Code(s): F30.9 - Manic episode, unspecified Assessment and Plan: 37 yo male with reported past history of schizophrenia admitted with bizarre, paranoid and delusional behavior. Patient mother reports decompensating since June 2022 and concerned for his disorganization and impulsive behaviors. (2) Psychosis: Status: Acute Code(s): F29 - Unspecified psychosis not due to a substance or known physiological condition Plan patient is a 37-year-old male with history of bipolar disorder, methamphetamine abuse who presents with manic behaviors PLAN: 3 day notice q15min checks Continue [place] ER 300mg PO BID for sandra (if proves effective and tolerated, will discuss with patient if he prefers bedtime dosing) Continue Haldol 5mg PO BID PRN help w/ agitation/sandra Continue Clonazepam 1mg BID 0900/1400 for help w/ sandra Continue Ativan 2mg PO Q4hr PRN for agitiation Continue Benadryl 50mg Q6hr PRN for EPS DC Depakote (not helping with sandra) DC zyprexa (not that helpful) Collateral information to clarify past history and treatment Milieu therapy Discharge planning. HOSPITAL COURSE: 09/12: Continue treatment plan. 09/13: Continue Zyprexa 10mg BID. Added Depakote 500mg BID to decrease sandra. 09/14: Spoke with pt about retracting 3 day notice. Continue mediations as ordered. Assess patient's safety for discharge patient on a 3 day notice presents agitated irritable Not physically aggressive or threatening but unable to assess mental status for will not clarify issues prior to discharge such as walking in traffic would benefit from additional history from patient's mother who has a better sense of his baseline ? file for tx plan and sec 7-8 09/15: Pt retracted 3 day notice. Increased Depakote to 750mg PO daily. Continue medications as ordered. Continues to present as labile and only be able to tolerate very brief interactions. Patient has agreed to stay inpatient longer to receive treatment. 09/16: remains manic; Patient willingly took Haldol 5mg PO, Ativan 2mg PO, Benadryl 50mg PO at 1204 due to increased agitation/distress. No side effects noted at this time. haldol seemed to help calm patient so will schedule and dc zyprexa 09/17: remains manic; Patient willingly took Haldol 5mg PO, Ativan 2mg PO, Benadryl 50mg PO at 1139 due to increased agitation/distress. No side effects noted at this time. signed 3 day notice. Starting patient on lithium d/t depakote not decreasing sandra symptoms. 09/18 cautiously hopeful that patient is improving now on lithium; while it remains possible that Depakote (revealed to be subtherapeutic) had become finally effective, now that patient has been started on lithium some of the manic symptoms seem to be lessening; for now will continue with lithium (can always we had Depakote if needed) and monitor. Haldol remains helpful as a p.r.n.. 09/19 patient remains improved; while still hypomanic, thought process much more organized, no bouts of dysregulated behavior. Sleeping through the night. -continue with lithium; will get labs; Patient educated on: diagnosis and medication risk/benefits Informed Consent: understands and further education needed Reason for continued inpatient stay Substantial Risk for: rapid decompensation Time Spent With Patient Time: Total time managing care of this patient today ____ minutes.
[2022-09-19] MEDS: LORazepam 1 MG TABLET 2 MG PO (15:58)
[2022-09-19] MEDS: HaloperidoL 5 MG TABLET PO (17:42)
[2022-09-19 18:17] VITALS: BP 133/77; PULSE 71; RESP 16; TEMP 36.6; O2SAT 99
[2022-09-20 06:00] VITALS: BP 140/87; PULSE 108; RESP 16; TEMP 36.9; O2SAT 97
[2022-09-20] MEDS: Lithium Carbonate ER 300 MG TABLET.ER PO ×2 (07:53→19:42)
[2022-09-20] MEDS: HaloperidoL 5 MG TABLET PO (07:54)
[2022-09-20] MEDS: clonazePAM 1 MG TABLET PO ×2 (07:54→14:07)
[2022-09-20] MEDS: LORazepam 1 MG TABLET 2 MG PO (09:35)
--- NOTE | 2022-09-20 13:42 | HO.PSYCHPN ---
Documented by User: Shilpa Lara NP 09/20/22 16:14 Subjective Subjective Date of Service: 09/20/22 Reason For Visit: agitation ? sandra Subjective Notes: Conditional Voluntary Interim History: Met with patient; discussed with team. Patient retracted 3 day notice with social services coordinator and T/W. Patient continues to be in behavioral and impulse control. Patient was able to vocalize to RN that he was feeling overwhelemed and asked for a p.r.n. medication. Patient is focused on discharge and is hoping to leave by the end of this week. He is currently not interested in attending any programs, however, he is willing to go to an outpatient provider for medications. He feels that medications are helpful. Patient reports he plans on staying clean and not using meth. Patient denies SI/HI/VH/AH at this time. Medication Compliance: Yes Side effects from medications: No Attending Groups: Yes Review of Systems Acute medical concerns: No Medical Review of Systems: unchanged Review of Systems Review of Systems Yes all other systems are reviewed and are negative Constitutional: Reports as per HPI Eyes: Reports as per HPI Reports as per HPI Cardiovascular: Reports as per HPI Respiratory: Reports as per HPI Gastrointestinal: Reports as per HPI Genitourinary: Reports as per HPI Musculoskeletal: Reports as per HPI Skin/Breast: Reports as per HPI Reports as per HPI Psychiatric: Reports as per HPI Endocrine: Reports as per HPI Hematologic/Lymphatic: Reports as per HPI Allergic/Immunologic: Reports as per HPI Mental Status Exam Mental Status Exam Narrative: Pt is alert and oriented; behavior is cooperative, friendly; hyperactive and no dysregulated outbursts; dressed in casual attire with shorts on over his pants; adequate hygiene; mood is described as okay and affect constricted; eye contact appropriate; Speech is a little pressured but much less so; normal volume; some moderate psychomotor agitation present; thought process is mostly organized and goal directed; Thought content is on tx, discharge; otherwise remains pertinent to relevant topics; no delusional thinking expressed; denies any SI/HI. There is no evidence of perceptual disturbance.Patients insight and judgment impaired but improving. Diagnostics Vital Signs (24Hr): Vital Signs - 24 hr 09/19/22 18:17 09/20/22 06:00 Temperature 97.8 F 98.4 F Pulse Rate 71 108 H Respiratory Rate 16 16 Blood Pressure 133/77 140/87 H Pulse Oximetry 99 97 Oxygen Delivery Method Room Air Room Air BMI result Body Mass Index 26.4 Labs 09/09/22 04:43 09/09/22 04:43 Medications Medications Current Medications Acetaminophen (Acetaminophen 325 Mg Tablet) 650 mg PO Q6H PRN PRN Reason: Headache/Pain Mild Scale (1-3) Last Admin: 09/17/22 14:48 Dose: 650 mg Al Hydroxide/Mg Hydroxide (Magnesium Hydrox/Alum Hydrox 30 Ml Oral.Susp) 30 ml PO Q6H PRN PRN Reason: Heartburn/Nausea Benzocaine (Benzocaine 20 % Oral Gel 9 Gm Tube) 1 appl MUCOUS MEM QID PRN; Protocol PRN Reason: tooth pain Last Admin: 09/17/22 14:48 Dose: 1 appl Clonazepam (Clonazepam 1 Mg Tablet) 1 mg PO BID@0830,1430 [facility] Last Admin: 09/20/22 07:54 Dose: 1 mg Diphenhydramine HCl (Diphenhydramine Hcl 25 Mg Capsule) 50 mg PO Q6H PRN PRN Reason: EPS Last Admin: 09/18/22 03:15 Dose: 50 mg Haloperidol (Haloperidol 5 Mg Tablet) 5 mg PO BID PRN PRN Reason: agitation Last Admin: 09/20/22 07:54 Dose: 5 mg Hydroxyzine HCl (Hydroxyzine Hcl 25 Mg Tablet) 25 mg PO Q6H PRN PRN Reason: Anxiety Last Admin: 09/18/22 15:48 Dose: 25 mg [place] Carbonate ([place] Carbonate Er 300 Mg Tablet.Er) 300 mg PO BID [facility] Last Admin: 09/20/22 07:53 Dose: 300 mg Lorazepam (Lorazepam 1 Mg Tablet) 2 mg PO Q4H PRN PRN Reason: agitation Last Admin: 09/20/22 09:35 Dose: 2 mg Magnesium Hydroxide (Milk Of Magnesia 30 Ml Oral.Susp) 30 ml PO DAILY PRN PRN Reason: Constipation Allergies Allergies Allergy/AdvReac Type Severity Reaction Status Date / Time No Known Allergies Allergy Verified 09/08/22 18:54 Assessment & Plan Assessment & Plan (1) Sandra: Status: Acute Code(s): F30.9 - Manic episode, unspecified Assessment and Plan: 37 yo male with reported past history of schizophrenia admitted with bizarre, paranoid and delusional behavior. Patient mother reports decompensating since June 2022 and concerned for his disorganization and impulsive behaviors. (2) Psychosis: Status: Acute Code(s): F29 - Unspecified psychosis not due to a substance or known physiological condition Plan patient is a 37-year-old male with history of bipolar disorder, methamphetamine abuse who presents with manic behaviors PLAN: CV q15min checks Continue [place] ER 300mg PO BID for sandra (if proves effective and tolerated, will discuss with patient if he prefers bedtime dosing) Continue Haldol 5mg PO BID PRN help w/ agitation/sandra Continue Clonazepam 1mg BID 0900/1400 for help w/ sandra Continue Ativan 2mg PO Q4hr PRN for agitiation Continue Benadryl 50mg Q6hr PRN for EPS DC Depakote (not helping with sandra) DC zyprexa (not that helpful) Collateral information to clarify past history and treatment Milieu therapy Discharge planning. HOSPITAL COURSE: 09/12: Continue treatment plan. 09/13: Continue Zyprexa 10mg BID. Added Depakote 500mg BID to decrease sandra. 09/14: Spoke with pt about retracting 3 day notice. Continue mediations as ordered. Assess patient's safety for discharge patient on a 3 day notice presents agitated irritable Not physically aggressive or threatening but unable to assess mental status for will not clarify issues prior to discharge such as walking in traffic would benefit from additional history from patient's mother who has a better sense of his baseline ? file for tx plan and sec 7-8 09/15: Pt retracted 3 day notice. Increased Depakote to 750mg PO daily. Continue medications as ordered. Continues to present as labile and only be able to tolerate very brief interactions. Patient has agreed to stay inpatient longer to receive treatment. 09/16: remains manic; Patient willingly took Haldol 5mg PO, Ativan 2mg PO, Benadryl 50mg PO at 1204 due to increased agitation/distress. No side effects noted at this time. haldol seemed to help calm patient so will schedule and dc zyprexa 09/17: remains manic; Patient willingly took Haldol 5mg PO, Ativan 2mg PO, Benadryl 50mg PO at 1139 due to increased agitation/distress. No side effects noted at this time. signed 3 day notice. Starting patient on lithium d/t depakote not decreasing sandra symptoms. 09/18 cautiously hopeful that patient is improving now on lithium; while it remains possible that Depakote (revealed to be subtherapeutic) had become finally effective, now that patient has been started on lithium some of the manic symptoms seem to be lessening; for now will continue with lithium (can always we had Depakote if needed) and monitor. Haldol remains helpful as a p.r.n.. 09/19 patient remains improved; while still hypomanic, thought process much more organized, no bouts of dysregulated behavior. Sleeping through the night. -continue with lithium; will get labs; 09/20: Patient appears to be improving, retracted 3 day notice. Discharged planned for either or Tuesday this week. [place] level, BUN, Creatinine, TSH w/reflex Free T4 labs to be drawn Tuesday. Continue medications as ordered. machine shop worker is setting up patient with outpatient providers. Reason for continued inpatient stay Substantial Risk for: med/psych decompensation Time Spent With Patient Time: Total time managing care of this patient today ____ minutes. Documented by User: Gianfranco Emmanuel MD 09/20/22 16:16 Subjective Subjective Reason For Visit: agitation ? sandra Interim History: Met with patient; discussed with team. Patient retracted 3 day notice with social services coordinator and T/W. Patient continues to be in improved behavioral and impulse control. Patient was able to vocalize to RN that he was feeling overwhelmed and asked for a p.r.n. medication. Patient is focused on discharge and is hoping to leave by the end of this week. He is currently not interested in attending any programs, however, he is willing to go to an outpatient provider for medications. He feels that medications are helpful. Patient reports he plans on staying clean and not using meth. Patient denies SI/HI/VH/AH at this time. Diagnostics Labs 09/09/22 04:43 09/09/22 04:43 Assessment & Plan Assessment & Plan (1) Sandra: Status: Acute Code(s): F30.9 - Manic episode, unspecified (2) Psychosis: Status: Acute Code(s): F29 - Unspecified psychosis not due to a substance or known physiological condition Plan patient is a 37-year-old male with history of bipolar disorder, methamphetamine abuse who presents with manic behaviors PLAN: CV q15min checks Continue [place] ER 300mg PO BID for sandra (if proves effective and tolerated, will discuss with patient if he prefers bedtime dosing) Continue Haldol 5mg PO BID PRN help w/ agitation/sandra Continue Clonazepam 1mg BID 0900/1400 for help w/ sandra Continue Ativan 2mg PO Q4hr PRN for agitiation Continue Benadryl 50mg Q6hr PRN for EPS DC Depakote (not helping with sandra) DC zyprexa (not that helpful) Collateral information to clarify past history and treatment Milieu therapy Discharge planning. HOSPITAL COURSE: 09/12: Continue treatment plan. 09/13: Continue Zyprexa 10mg BID. Added Depakote 500mg BID to decrease sandra. 09/14: Spoke with pt about retracting 3 day notice. Continue mediations as ordered. Assess patient's safety for discharge patient on a 3 day notice presents agitated irritable Not physically aggressive or threatening but unable to assess mental status for will not clarify issues prior to discharge such as walking in traffic would benefit from additional history from patient's mother who has a better sense of his baseline ? file for tx plan and sec 7-8 09/15: Pt retracted 3 day notice. Increased Depakote to 750mg PO daily. Continue medications as ordered. Continues to present as labile and only be able to tolerate very brief interactions. Patient has agreed to stay inpatient longer to receive treatment. 09/16: remains manic; Patient willingly took Haldol 5mg PO, Ativan 2mg PO, Benadryl 50mg PO at 1204 due to increased agitation/distress. No side effects noted at this time. haldol seemed to help calm patient so will schedule and dc zyprexa 09/17: remains manic; Patient willingly took Haldol 5mg PO, Ativan 2mg PO, Benadryl 50mg PO at 1139 due to increased agitation/distress. No side effects noted at this time. signed 3 day notice. Starting patient on lithium d/t depakote not decreasing sandra symptoms. 09/18 cautiously hopeful that patient is improving now on lithium; while it remains possible that Depakote (revealed to be subtherapeutic) had become finally effective, now that patient has been started on lithium some of the manic symptoms seem to be lessening; for now will continue with lithium (can always we had Depakote if needed) and monitor. Haldol remains helpful as a p.r.n.. 09/19 patient remains improved; while still hypomanic, thought process much more organized, no bouts of dysregulated behavior. Sleeping through the night. -continue with lithium; will get labs; 09/20: Patient appears to be improving, much more organized, tolerating conversations well and even agreeing to continue treatment., retracted 3 day notice. Discharged planned for either or Tuesday this week. [place] level, BUN, Creatinine, TSH w/reflex Free T4 labs to be drawn Tuesday. Continue medications as ordered. machine shop worker is setting up patient with outpatient providers. Patient educated on: diagnosis, medication risk/benefits and therapeutic strategies Informed Consent: understands Reason for continued inpatient stay Substantial Risk for: rapid decompensation
[2022-09-20] MEDS: LORazepam 1 MG TABLET PO (17:09)
[2022-09-20] MEDS: hydrOXYzine HCL 25 MG TABLET PO (17:40)
[2022-09-20 18:00] VITALS: BP 141/76; PULSE 96; TEMP 36.2; O2SAT 96
[2022-09-20] MEDS: diphenhydrAMINE HCL 25 MG CAPSULE 50 MG PO (19:42)
[2022-09-21] MEDS: diphenhydrAMINE HCL 25 MG CAPSULE 50 MG PO ×3 (06:08→19:44)
[2022-09-21] MEDS: clonazePAM 0.5 MG TABLET PO (08:09)
[2022-09-21] MEDS: Lithium Carbonate ER 300 MG TABLET.ER PO ×2 (08:09→18:51)
[2022-09-21 08:10] VITALS: BP 131/86; PULSE 100; RESP 16; TEMP 36.4; O2SAT 96
[2022-09-21] MEDS: HaloperidoL 5 MG TABLET PO ×2 (09:07→18:18)
[2022-09-21] MEDS: Loratadine 10 MG TABLET PO (11:01)
[2022-09-21 11:14] LABS: Lithium 0.24 mmol/L (0.60-1.20)
--- NOTE | 2022-09-21 14:14 | P.PNPSI_ITS ---
Documented by User: Shilpa Lara NP 09/21/22 14:36 Subjective Subjective Date of Service: 09/21/22 Reason For Visit: agitation ? alanna Subjective Notes: Conditional Voluntary Interim History: Met with patient; discussed with team. Met with patient, his mother (Amparo), and Dr. Emmanuel. Patient continues to be in improved behavioral and impulse control. Patient continues to be able to vocalize when he is feeling overwhelmed. Patient is focused on discharge and is hoping to leave by the end of this week. He is currently not interested in attending any programs, however, he is willing to go to an outpatient provider for medications. He feels that medications are helpful. Patient reports he plans on staying clean and not using meth. Patient stated, I'll keep taking the lithium but that's it; and my mom can make sure I am . Patient's mothers agrees that patient does appear to have improved and believes the lithium is working. Patients mother expressed willingness to help patient take his medication daily. Patient denies SI/HI/VH/AH at this time. Medication Compliance: Yes Side effects from medications: No Attending Groups: Yes Review of Systems Medical Review of Systems: unchanged Review of Systems Review of Systems Yes all other systems are reviewed and are negative Constitutional: Reports as per HPI Eyes: Reports as per HPI Reports as per HPI Cardiovascular: Reports as per HPI Respiratory: Reports as per HPI Gastrointestinal: Reports as per HPI Genitourinary: Reports as per HPI Musculoskeletal: Reports as per HPI Skin/Breast: Reports as per HPI Reports as per HPI Psychiatric: Reports as per HPI Endocrine: Reports as per HPI Hematologic/Lymphatic: Reports as per HPI Allergic/Immunologic: Reports as per HPI Mental Status Exam Mental Status Exam Narrative: Pt is alert and oriented; behavior is cooperative, friendly; hyperactive and no dysregulated outbursts; dressed in casual attire with shorts on over his pants; adequate hygiene; mood is described as okay and affect constricted; eye contact appropriate; Speech is a little pressured but much less so; normal volume; some moderate psychomotor agitation present; thought process is mostly organized and goal directed; Thought content is on tx, discharge; otherwise remains pertinent to relevant topics; no delusional thinking expressed; denies any SI/HI. There is no evidence of perceptual disturbance.Patients insight and judgment impaired but improving. Diagnostics Vital Signs (24Hr): Vital Signs - 24 hr 09/20/22 18:00 09/21/22 08:10 Temperature 97.1 F 97.6 F Pulse Rate 96 100 Respiratory Rate 16 Blood Pressure 141/76 H 131/86 Pulse Oximetry 96 96 Oxygen Delivery Method Room Air Room Air BMI result Body Mass Index 26.4 Labs 09/09/22 04:43 09/09/22 04:43 Labs: Laboratory Results - last 48 hr 09/21/22 08:04 [place] 0.24 L Medications Medications Current Medications Acetaminophen (Acetaminophen 325 Mg Tablet) 650 mg PO Q6H PRN PRN Reason: Headache/Pain Mild Scale (1-3) Last Admin: 09/17/22 14:48 Dose: 650 mg Al Hydroxide/Mg Hydroxide (Magnesium Hydrox/Alum Hydrox 30 Ml Oral.Susp) 30 ml PO Q6H PRN PRN Reason: Heartburn/Nausea Benzocaine (Benzocaine 20 % Oral Gel 9 Gm Tube) 1 appl MUCOUS MEM QID PRN; Protocol PRN Reason: tooth pain Last Admin: 09/17/22 14:48 Dose: 1 appl Clonazepam (Clonazepam 0.5 Mg Tablet) 0.5 mg PO BID@0830,1430 [facility] Last Admin: 09/21/22 08:09 Dose: 0.5 mg Diphenhydramine HCl (Diphenhydramine Hcl 25 Mg Capsule) 50 mg PO Q6H PRN PRN Reason: EPS Last Admin: 09/21/22 06:08 Dose: 50 mg Haloperidol (Haloperidol 5 Mg Tablet) 5 mg PO BID PRN PRN Reason: agitation Last Admin: 09/21/22 09:07 Dose: 5 mg Hydroxyzine HCl (Hydroxyzine Hcl 25 Mg Tablet) 25 mg PO Q6H PRN PRN Reason: Anxiety Last Admin: 09/20/22 17:40 Dose: 25 mg [place] Carbonate ([place] Carbonate Er 300 Mg Tablet.Er) 300 mg PO BID [facility] Last Admin: 09/21/22 08:09 Dose: 300 mg Loratadine (Loratadine 10 Mg Tablet) 10 mg PO DAILY [facility] Last Admin: 09/21/22 11:01 Dose: 10 mg Lorazepam (Lorazepam 1 Mg Tablet) 1 mg PO TID PRN PRN Reason: agitation Last Admin: 09/20/22 17:09 Dose: 1 mg Magnesium Hydroxide (Milk Of Magnesia 30 Ml Oral.Susp) 30 ml PO DAILY PRN PRN Reason: Constipation Allergies Allergies Allergy/AdvReac Type Severity Reaction Status Date / Time No Known Allergies Allergy Verified 09/08/22 18:54 Assessment & Plan Assessment & Plan (1) Alanna: Status: Acute Code(s): F30.9 - Manic episode, unspecified Assessment and Plan: 37 yo male with reported past history of schizophrenia admitted with bizarre, paranoid and delusional behavior. Patient mother reports decompensating since June 2022 and concerned for his disorganization and impulsive behaviors. (2) Psychosis: Status: Acute Code(s): F29 - Unspecified psychosis not due to a substance or known physiological condition Plan patient is a 37-year-old male with history of bipolar disorder, methamphetamine abuse who presents with manic behaviors PLAN: CV q15min checks Continue [place] ER 300mg PO BID for alanna (if proves effective and tolerated, will discuss with patient if he prefers bedtime dosing) Continue Haldol 5mg PO BID PRN help w/ agitation/alanna Continue Clonazepam 1mg BID 0900/1400 for help w/ alanna Continue Ativan 2mg PO Q4hr PRN for agitiation Continue Benadryl 50mg Q6hr PRN for EPS Collateral information to clarify past history and treatment [place] level, BUN, Creatinine, TSH w/reflex Free T4 labs to be drawn [facility] therapy Discharge planning. HOSPITAL COURSE: 09/12: Continue treatment plan. 09/13: Continue Zyprexa 10mg BID. Added Depakote 500mg BID to decrease alanna. 09/14: Spoke with pt about retracting 3 day notice. Continue mediations as order ed. Assess patient's safety for discharge patient on a 3 day notice presents agitated irritable Not physically aggressive or threatening but unable to assess mental status for will not clarify issues prior to discharge such as walking in traffic would benefit from additional history from patient's mother who has a better sense of his baseline ? file for tx plan and sec 7-8 09/15: Pt retracted 3 day notice. Increased Depakote to 750mg PO daily. Continue medications as ordered. Continues to present as labile and only be able to tolerate very brief interactions. Patient has agreed to stay inpatient longer to receive treatment. 09/16: remains manic; Patient willingly took Haldol 5mg PO, Ativan 2mg PO, Benadryl 50mg PO at 1204 due to increased agitation/distress. No side effects noted at this time. haldol seemed to help calm patient so will schedule and dc zyprexa 09/17: remains manic; Patient willingly took Haldol 5mg PO, Ativan 2mg PO, Benadryl 50mg PO at 1139 due to increased agitation/distress. No side effects noted at this time. signed 3 day notice. Starting patient on lithium d/t depak ote not decreasing alanna symptoms. 09/18 cautiously hopeful that patient is improving now on lithium; while it remains possible that Depakote (revealed to be subtherapeutic) had become finally effective, now that patient has been started on lithium some of the manic symptoms seem to be lessening; for now will continue with lithium (can always we had Depakote if needed) and monitor. Haldol remains helpful as a p.r.n.. 09/19 patient remains improved; while still hypomanic, thought process much more organized, no bouts of dysregulated behavior. Sleeping through the night. -continue with lithium; will get labs; 09/20: Patient appears to be improving, much more organized, tolerating conversations well and even agreeing to continue treatment., retracted 3 day notice. Discharged planned for either or Tuesday this week. [place] level, BUN, Creatinine, TSH w/reflex Free T4 labs to be drawn Tuesday morning. Continue medications as ordered. general foundry worker is setting up patient with outpatient providers. 09/21: Patient appears to be organized and is able to have a conversation regarding his treatment. Patient has agreed to continue taking [place] with the help of his mother. However, he does not want to go to any programs or therapy. Patient stated, talk therapy is bullshit . Continue mediations as ordered. Patient to be discharged on . Patient educated on: medication risk/benefits Informed Consent: understands Reason for continued inpatient stay Substantial Risk for: med/psych decompensation Time Spent With Patient Time: Total time managing care of this patient today ____ minutes. Documented by User: Gianfranco Emmanuel MD 09/22/22 09:10 Subjective Subjective Reason For Visit: agitation ? alanna Mental Status Exam Mental Status Exam Narrative: Pt is alert and oriented; behavior is cooperative, friendly; mildly hyperactive but able to be appropriate; and no dysregulated outbursts; dressed in casual attire with shorts on over his pants; adequate hygiene; mood is described as okay and affect constricted; eye contact appropriate; Speech is no longer pressured; normal volume; some moderate psychomotor agitation intermittently present; thought process is organized and goal directed; Thought content is on tx, discharge; otherwise remains pertinent to relevant topics; no delusional thinking expressed; denies any SI/HI. There is no evidence of perceptual disturbance.Patients insight and judgment impaired but significantly improved and adequate. Diagnostics Labs 09/09/22 04:43 09/09/22 04:43 Assessment & Plan Assessment & Plan (1) Alanna: Status: Acute Code(s): F30.9 - Manic episode, unspecified (2) Psychosis: Status: Acute Code(s): F29 - Unspecified psychosis not due to a substance or known physiological co ndition Plan patient is a 37-year-old male with history of bipolar disorder, methamphetamine abuse who presents with manic behaviors PLAN: CV q15min checks Continue [place] ER 300mg PO BID for alanna (if proves effective and tolerated, will discuss with patient if he prefers bedtime dosing) Continue Haldol 5mg PO BID PRN help w/ agitation/alanna Continue Clonazepam 1mg BID 0900/1400 for help w/ alanna Continue Ativan 2mg PO Q4hr PRN for agitiation Continue Benadryl 50mg Q6hr PRN for EPS Collateral information to clarify past history and treatment [place] level, BUN, Creatinine, TSH w/reflex Free T4 labs to be drawn [facility] Discharge planning. HOSPITAL COURSE: 09/12: Continue treatment plan. 09/13: Continue Zyprexa 10mg BID. Added Depakote 500mg BID to decrease alanna. 09/14: Spoke with pt about retracting 3 day notice. Continue mediations as ordered. Assess patient's safety for discharge patient on a 3 day notice presents agitated irritable Not physically aggressive or threatening but unable to assess mental status for will not clarify issues prior to discharge such as walking in traffic would benefit from additional history from patient's mother who has a better sense of his baseline ? file for tx plan and sec 7-8 09/15: Pt retracted 3 day notice. Increased Depakote to 750mg PO daily. Continue medications as ordered. Continues to present as labile and only be able to tolerate very brief interactions. Patient has agreed to stay inpatient longer to receive treatment. 09/16: remains manic; Patient willingly took Haldol 5mg PO, Ativan 2mg PO, Benadryl 50mg PO at 1204 due to increased agitation/distress. No side effects noted at this time. haldol seemed to help calm patient so will schedule and dc zyprexa 09/17: remains manic; Patient willingly took Haldol 5mg PO, Ativan 2mg PO, Benad ryl 50mg PO at 1139 due to increased agitation/distress. No side effects noted at this time. signed 3 day notice. Starting patient on lithium d/t depakote not decreasing alanna symptoms. 09/18 cautiously hopeful that patient is improving now on lithium; while it remains possible that Depakote (revealed to be subtherapeutic) had become finally effective, now that patient has been started on lithium some of the manic symptoms seem to be lessening; for now will continue with lithium (can always we had Depakote if needed) and monitor. Haldol remains helpful as a p.r.n.. 09/19 patient remains improved; while still hypomanic, thought process much more organized, no bouts of dysregulated behavior. Sleeping through the night. -continue with lithium; will get labs; 09/20: Patient appears to be improving, much more organized, tolerating conversations well and even agreeing to continue treatment., retracted 3 day notice. Discharged planned for either or Tuesday this week. [place] level, BUN, Creatinine, TSH w/reflex Free T4 labs to be drawn Tuesday. Continue medications as ordered. general foundry worker is setting up patient with outpatient providers. 09/21: Patient is organized in both speech and behavior; he is able to have an appropriate meaningful conversation about his treatment; though he does not have full insight into his illness and remains with some ambivalence about medicatio ns, he agrees that medications have helped him and says he will continue to take them. Patient's mother present and the 2 of them agreed she would help him to remain adherent. Patient does not want to go to any programs or therapy. Patient stated, talk therapy is bullshit . Continue mediations as ordered. For some reason, lithium level ordered a day or early; will get another level to appropriately establish steady state level. While patient remains vulnerable to both relapse and dysregulation, he is stable, organized and manic symptoms significantly reduced. He returns to live with his mother who is supportive. Patient is not in imminent risk for harm to self or others. Will proceed with discharge plans Reason for continued inpatient stay Substantial Risk for: stable for discharge
[2022-09-21] MEDS: LORazepam 1 MG TABLET PO (18:51)
[2022-09-21 19:26] VITALS: BP 130/78; PULSE 89
[2022-09-22] MEDS: Loratadine 10 MG TABLET PO (08:45)
[2022-09-22] MEDS: Lithium Carbonate ER 300 MG TABLET.ER PO ×2 (08:45→19:07)
[2022-09-22] MEDS: clonazePAM 0.5 MG TABLET PO ×2 (08:45→14:28)
[2022-09-22 08:54] VITALS: BP 137/78; PULSE 112; RESP 18; TEMP 36.2; O2SAT 96
[2022-09-22 09:19] LABS: Lithium 0.29 mmol/L (0.60-1.20)
[2022-09-22 09:44] LABS: Blood Urea Nitrogen 20 mg/dL (9-16); Creatinine Clr Calc Pharmacy 100.1; Estimated Glomerular Filt Rate > 60
[2022-09-22 09:55] LABS: TSH reflex Free T4 2.92 uIU/mL (0.32-4.0)
[2022-09-22] MEDS: HaloperidoL 5 MG TABLET PO (10:30)
--- NOTE | 2022-09-22 12:45 | HO.PSYCHPN ---
Documented by User: Shilpa Lara NP 09/22/22 13:01 Subjective Subjective Date of Service: 09/22/22 Reason For Visit: agitation ? alanna Subjective Notes: Conditional Voluntary Interim History: Met with patient; discussed with team. Patient continues to be in behavioral and impulse control. Patient continues to be able to vocalize when he is feeling overwhelmed. Patient is focused on discharge and is looking forward to discharge tomorrow. He continues to not be interested in attending any programs, however, he is willing to go to an outpatient provider for medications. He feels that medications are helpful and plans on continuing taking lithium when discharged. Patient continues to report that he plans on staying clean and not using meth. Patient denies SI/HI/VH/AH at this time. Medication Compliance: Yes Side effects from medications: No Attending Groups: Yes Review of Systems Medical Review of Systems: unchanged Review of Systems Review of Systems Yes all other systems are reviewed and are negative Constitutional: Reports as per HPI Eyes: Reports as per HPI Reports as per HPI Cardiovascular: Reports as per HPI Respiratory: Reports as per HPI Gastrointestinal: Reports as per HPI Genitourinary: Reports as per HPI Musculoskeletal: Reports as per HPI Skin/Breast: Reports as per HPI Reports as per HPI Psychiatric: Reports as per HPI Endocrine: Reports as per HPI Hematologic/Lymphatic: Reports as per HPI Allergic/Immunologic: Reports as per HPI Mental Status Exam Mental Status Exam Narrative: Pt is alert and oriented; behavior is cooperative, friendly; mildly hyperactive but able to be appropriate; and no dysregulated outbursts; dressed in casual attire with shorts on over his pants; adequate hygiene; mood is described as good and affect constricted; eye contact appropriate; Speech is no longer pressured; normal volume; some moderate psychomotor agitation intermittently present; thought process is organized and goal directed; Thought content is on tx, discharge; otherwise remains pertinent to relevant topics; no delusional thinking expressed; denies any SI/HI. There is no evidence of perceptual disturbance.Patients insight and judgment are fair. Diagnostics Vital Signs (24Hr): Vital Signs - 24 hr 09/21/22 19:26 09/22/22 08:54 Temperature 97.1 F Pulse Rate 89 112 H Respiratory Rate 18 Blood Pressure 130/78 137/78 Pulse Oximetry 96 Oxygen Delivery Method Room Air BMI result Body Mass Index 26.4 Labs 09/09/22 04:43 09/22/22 08:20 Labs: Laboratory Results - last 48 hr 09/21/22 09/22/22 09/22/22 08:04 08:20 08:20 BUN 20 H Creatinine 1.01 Estim Creat Clear Calc 100.1 Estimated GFR > 60 TSH 2.92 [place] 0.24 L 0.29 L Medications Medications Current Medications Acetaminophen (Acetaminophen 325 Mg Tablet) 650 mg PO Q6H PRN PRN Reason: Headache/Pain Mild Scale (1-3) Last Admin: 09/17/22 14:48 Dose: 650 mg Al Hydroxide/Mg Hydroxide (Magnesium Hydrox/Alum Hydrox 30 Ml Oral.Susp) 30 ml PO Q6H PRN PRN Reason: Heartburn/Nausea Benzocaine (Benzocaine 20 % Oral Gel 9 Gm Tube) 1 appl MUCOUS MEM QID PRN; Protocol PRN Reason: tooth pain Last Admin: 09/17/22 14:48 Dose: 1 appl Clonazepam (Clonazepam 0.5 Mg Tablet) 0.5 mg PO BID@0830,1430 [facility] Last Admin: 09/22/22 08:45 Dose: 0.5 mg Diphenhydramine HCl (Diphenhydramine Hcl 25 Mg Capsule) 50 mg PO Q6H PRN PRN Reason: EPS Last Admin: 09/21/22 19:44 Dose: 50 mg Haloperidol (Haloperidol 5 Mg Tablet) 5 mg PO BID PRN PRN Reason: agitation Last Admin: 09/22/22 10:30 Dose: 5 mg Hydroxyzine HCl (Hydroxyzine Hcl 25 Mg Tablet) 25 mg PO Q6H PRN PRN Reason: Anxiety Last Admin: 09/20/22 17:40 Dose: 25 mg [place] Carbonate ([place] Carbonate Er 300 Mg Tablet.Er) 300 mg PO BID [facility] Last Admin: 09/22/22 08:45 Dose: 300 mg Loratadine (Loratadine 10 Mg Tablet) 10 mg PO DAILY [facility] Last Admin: 09/22/22 08:45 Dose: 10 mg Lorazepam (Lorazepam 1 Mg Tablet) 1 mg PO TID PRN PRN Reason: agitation Last Admin: 09/21/22 18:51 Dose: 1 mg Magnesium Hydroxide (Milk Of Magnesia 30 Ml Oral.Susp) 30 ml PO DAILY PRN PRN Reason: Constipation Allergies Allergies Allergy/AdvReac Type Severity Reaction Status Date / Time No Known Allergies Allergy Verified 09/08/22 18:54 Assessment & Plan Assessment & Plan (1) Alanna: Status: Acute Code(s): F30.9 - Manic episode, unspecified Assessment and Plan: 37 yo male with reported past history of schizophrenia admitted with bizarre, paranoid and delusional behavior. Patient mother reports decompensating since June 2022 and concerned for his disorganization and impulsive behaviors. (2) Psychosis: Status: Acute Code(s): F29 - Unspecified psychosis not due to a substance or known physiological condition Plan patient is a 37-year-old male with history of bipolar disorder, methamphetamine abuse who presents with manic behaviors PLAN: CV q15min checks Continue [place] ER 300mg PO BID for alanna (if proves effective and tolerated, will discuss with patient if he prefers bedtime dosing) Continue Haldol 5mg PO BID PRN help w/ agitation/alanna Continue Clonazepam 1mg BID 0900/1400 for help w/ alanna Continue Ativan 2mg PO Q4hr PRN for agitiation Continue Benadryl 50mg Q6hr PRN for EPS Collateral information to clarify past history and treatment [place] level, BUN, Creatinine, TSH w/reflex Free T4 labs to be drawn [facility] therapy Discharge planning. HOSPITAL COURSE: 09/12: Continue treatment plan. 09/13: Continue Zyprexa 10mg BID. Added Depakote 500mg BID to decrease alanna. 09/14: Spoke with pt about retracting 3 day notice. Continue mediations as ordered. Assess patient's safety for discharge patient on a 3 day notice presents agitated irritable Not physically aggressive or threatening but unable to assess mental status for will not clarify issues prior to discharge such as walking in traffic would benefit from additional history from patient's mother who has a better sense of his baseline ? file for tx plan and sec 7-8 09/15: Pt retracted 3 day notice. Increased Depakote to 750mg PO daily. Continue medications as ordered. Continues to present as labile and only be able to tolerate very brief interactions. Patient has agreed to stay inpatient longer to receive treatment. 09/16: remains manic; Patient willingly took Haldol 5mg PO, Ativan 2mg PO, Benadryl 50mg PO at 1204 due to increased agitation/distress. No side effects noted at this time. haldol seemed to help calm patient so will schedule and dc zyprexa 09/17: remains manic; Patient willingly took Haldol 5mg PO, Ativan 2mg PO, Benadryl 50mg PO at 1139 due to increased agitation/distress. No side effects noted at this time. signed 3 day notice. Starting patient on lithium d/t depakote not decreasing alanna symptoms. 09/18 cautiously hopeful that patient is improving now on lithium; while it remains possible that Depakote (revealed to be subtherapeutic) had become finally effective, now that patient has been started on lithium some of the manic symptoms seem to be lessening; for now will continue with lithium (can always we had Depakote if needed) and monitor. Haldol remains helpful as a p.r.n.. 09/19 patient remains improved; while still hypomanic, thought process much more organized, no bouts of dysregulated behavior. Sleeping through the night. -continue with lithium; will get labs; 09/20: Patient appears to be improving, much more organized, tolerating conversations well and even agreeing to continue treatment., retracted 3 day notice. Discharged planned for either or Tuesday this week. [place] level, BUN, Creatinine, TSH w/reflex Free T4 labs to be drawn Tuesday. Continue medications as ordered. [facility] v[employer] worker is setting up patient with outpatient providers. 09/21: Patient is organized in both speech and behavior; he is able to have an appropriate meaningful conversation about his treatment; though he does not have full insight into his illness and remains with some ambivalence about medications, he agrees that medications have helped him and says he will continue to take them. Patient's mother present and the 2 of them agreed she would help him to remain adherent. Patient does not want to go to any programs or therapy. Patient stated, talk therapy is bullshit . Continue mediations as ordered. For some reason, lithium level ordered a day or early; will get another level to appropriately establish steady state level. While patient remains vulnerable to both relapse and dysregulation, he is stable, organized and manic symptoms significantly reduced. He returns to live with his mother who is supportive. Patient is not in imminent risk for harm to self or others. Will proceed with discharge plans 09/22: Patient remains improved. He reports feeling good today and looking forward to being discharged tomorrow. [place] level 0.29, patient is aware he will have to continue to have labs drawn to monitor his levels when discharged. Patient educated on: medication risk/benefits Informed Consent: understands Reason for continued inpatient stay Substantial Risk for: stable for discharge Time Spent With Patient Time: Total time managing care of this patient today ____ minutes. Documented by User: Gianfranco Emmanuel MD 09/23/22 11:42 Subjective Subjective Reason For Visit: agitation ? alanna Diagnostics Labs 09/09/22 04:43 09/22/22 08:20 Assessment & Plan Assessment & Plan (1) Alanna: Status: Acute Code(s): F30.9 - Manic episode, unspecified (2) Psychosis: Status: Acute Code(s): F29 - Unspecified psychosis not due to a substance or known physiological condition Plan patient is a 37-year-old male with history of bipolar disorder, methamphetamine abuse who presents with manic behaviors PLAN: CV q15min checks Continue [place] ER 300mg PO BID for alanna (if proves effective and tolerated, will discuss with patient if he prefers bedtime dosing) Continue Haldol 5mg PO BID PRN help w/ agitation/alanna Continue Clonazepam 1mg BID 0900/1400 for help w/ alanna Continue Ativan 2mg PO Q4hr PRN for agitiation Continue Benadryl 50mg Q6hr PRN for EPS Collateral information to clarify past history and treatment [place] level, BUN, Creatinine, TSH w/reflex Free T4 labs to be drawn [facility] therapy Discharge planning. HOSPITAL COURSE: 09/12: Continue treatment plan. 09/13: Continue Zyprexa 10mg BID. Added Depakote 500mg BID to decrease alanna. 09/14: Spoke with pt about retracting 3 day notice. Continue mediations as ordered. Assess patient's safety for discharge patient on a 3 day notice presents agitated irritable Not physically aggressive or threatening but unable to assess mental status for will not clarify issues prior to discharge such as walking in traffic would benefit from additional history from patient's mother who has a better sense of his baseline ? file for tx plan and sec 7-8 09/15: Pt retracted 3 day notice. Increased Depakote to 750mg PO daily. Continue medications as ordered. Continues to present as labile and only be able to tolerate very brief interactions. Patient has agreed to stay inpatient longer to receive treatment. 09/16: remains manic; Patient willingly took Haldol 5mg PO, Ativan 2mg PO, Benadryl 50mg PO at 1204 due to increased agitation/distress. No side effects noted at this time. haldol seemed to help calm patient so will schedule and dc zyprexa 09/17: remains manic; Patient willingly took Haldol 5mg PO, Ativan 2mg PO, Benadryl 50mg PO at 1139 due to increased agitation/distress. No side effects noted at this time. signed 3 day notice. Starting patient on lithium d/t depakote not decreasing alanna symptoms. 09/18 cautiously hopeful that patient is improving now on lithium; while it remains possible that Depakote (revealed to be subtherapeutic) had become finally effective, now that patient has been started on lithium some of the manic symptoms seem to be lessening; for now will continue with lithium (can always we had Depakote if needed) and monitor. Haldol remains helpful as a p.r.n.. 09/19 patient remains improved; while still hypomanic, thought process much more organized, no bouts of dysregulated behavior. Sleeping through the night. -continue with lithium; will get labs; 09/20: Patient appears to be improving, much more organized, tolerating conversations well and even agreeing to continue treatment., retracted 3 day notice. Discharged planned for either or Tuesday this week. [place] level, BUN, Creatinine, TSH w/reflex Free T4 labs to be drawn Tuesday. Continue medications as ordered. [facility] v[facility] worker is setting up patient with outpatient providers. 09/21: Patient is organized in both speech and behavior; he is able to have an appropriate meaningful conversation about his treatment; though he does not have full insight into his illness and remains with some ambivalence about medications, he agrees that medications have helped him and says he will continue to take them. Patient's mother present and the 2 of them agreed she would help him to remain adherent. Patient does not want to go to any programs or therapy. Patient stated, talk therapy is bullshit . Continue mediations as ordered. For some reason, lithium level ordered a day or early; will get another level to appropriately establish steady state level. While patient remains vulnerable to both relapse and dysregulation, he is stable, organized and manic symptoms significantly reduced. He returns to live with his mother who is supportive. Patient is not in imminent risk for harm to self or others. Will proceed with discharge plans 09/22: Patient remains improved. He reports feeling good today and looking forward to being discharged tomorrow. [place] level 0.29, patient is aware he will have to continue to have labs drawn to monitor his levels when discharged. Discussed case with DELANO and agree with tx plan
[2022-09-22] MEDS: diphenhydrAMINE HCL 25 MG CAPSULE 50 MG PO (15:38)
[2022-09-22] MEDS: LORazepam 1 MG TABLET PO (19:07)
[2022-09-23] MEDS: diphenhydrAMINE HCL 25 MG CAPSULE 50 MG PO (02:05)
[2022-09-23] MEDS: LORazepam 1 MG TABLET PO (03:57)
[2022-09-23 07:56] VITALS: BP 152/90; PULSE 99; RESP 16; TEMP 36.6; O2SAT 96
[2022-09-23] MEDS: Lithium Carbonate ER 300 MG TABLET.ER PO (07:59)
[2022-09-23] MEDS: Naloxone HCl Nasal TAKE HOME 4 MG SPRAY NOSTRILALT (08:14)
[2022-09-23] MEDS: clonazePAM 0.5 MG TABLET PO (08:19)
[2022-09-23] MEDS: hydrOXYzine HCL 25 MG TABLET PO (09:18)
--- NOTE | 2022-09-23 09:30 | P.DS_ITS ---
DS: Providers Provider Date of Service: 09/23/22 Date of admission: 09/10/22 14:03 Date of discharge: 09/23/22 Primary care physician: Marilou Physician Attending physician on admission: Shilpa Lara Attending physician on discharge: Shilpa Lara DS: Diagnosis Discharge Diagnosis (1) Alanna: Status: Resolved (2) Psychosis: Status: Resolved DS: Medications Discharge Medications Home Medications: Previous Rx's Medication Instructions Recorded lithium carbonate 300 mg 300 mg PO BID 30 days #60 tabs 09/22/22 tablet,extended release Mental Status Exam Mental Status Exam Narrative: Pt is alert and oriented; behavior is cooperative, friendly and calm; patient is not in distress; dressed in casual attire; mood is described as good and affect congruent; eye contact appropriate; Speech is normal rate, volume and prosody and not pressured; no psychomotor agitation/retardation present; thought process is organized and goal directed; Thought content is on tx; otherwise pertinent to relevant topics and without any delusional content, paranoid ideations or grandiosity; denies any SI/HI. There is no evidence of perceptual disturbance.Patients insight and judgment appear fair. Data Data Completed and Pending Completed studies during hospitalization [Text1]: 09/18/22 09/18/22 09/18/22 06:45 06:45 07:29 BUN Creatinine Estim Creat Clear Calc Estimated GFR Total Bilirubin 0.4 Direct Bilirubin 0.1 AST 23 ALT 28 Alkaline Phosphatase 73 Ammonia 50 Total Protein 6.4 L Albumin 4.2 TSH Valproic Acid 38.4 L [place] 09/21/22 09/22/22 09/22/22 08:04 08:20 08:20 BUN 20 H Creatinine 1.01 Estim Creat Clear Calc 100.1 Estimated GFR > 60 Total Bilirubin Direct Bilirubin AST ALT Alkaline Phosphatase Ammonia Total Protein Albumin TSH 2.92 Valproic Acid [place] 0.24 L 0.29 L DS: Summary Hospital Course Hospital Course: Patient is a 37-year-old male with history of bipolar disorder, methamphetamine abuse who presents with manic behaviors HOSPITAL COURSE: 09/12: Continue treatment plan. 09/13: Continue Zyprexa 10mg BID. Added Depakote 500mg BID to decrease alanna. 09/14: Spoke with pt about retracting 3 day notice. Continue mediations as ordered. Assess patient's safety for discharge patient on a 3 day notice presents agitated irritable Not physically aggressive or threatening but unable to assess mental status for will not clarify issues prior to discharge such as walking in traffic would benefit from additional history from patient's mother who has a better sense of his baseline ? file for tx plan and sec 7-8 09/15: Pt retracted 3 day notice. Increased Depakote to 750mg PO daily. Continue medications as ordered. Continues to present as labile and only be able to tolerate very brief interactions. Patient has agreed to stay inpatient longer to receive treatment. 09/16: remains manic; Patient willingly took Haldol 5mg PO, Ativan 2mg PO, Benadryl 50mg PO at 1204 due to increased agitation/distress. No side effects noted at this time. haldol seemed to help calm patient so will schedule and dc zyprexa 09/17: remains manic; Patient willingly took Haldol 5mg PO, Ativan 2mg PO, Benadryl 50mg PO at 1139 due to increased agitation/distress. No side effects noted at this time. signed 3 day notice. Starting patient on lithium d/t depakote not decreasing alanna symptoms. 09/18 cautiously hopeful that patient is improving now on lithium; while it remains possible that Depakote (revealed to be subtherapeutic) had become finally effective, now that patient has been started on lithium some of the manic symptoms seem to be lessening; for now will continue with lithium (can always we had Depakote if needed) and monitor. Haldol remains helpful as a p.r.n.. 09/19 patient remains improved; while still hypomanic, thought process much more organized, no bouts of dysregulated behavior. Sleeping through the night. -continue with lithium; will get labs; 09/20: Patient appears to be improving, much more organized, tolerating conversations well and even agreeing to continue treatment., retracted 3 day notice. Discharged planned for either or Tuesday this week. [place] level, BUN, Creatinine, TSH w/reflex Free T4 labs to be drawn Tuesday morning. Continue medications as ordered. pier worker is setting up patient with [place] providers. 09/21: Patient is organized in both speech and behavior; he is able to have an appropriate meaningful conversation about his treatment; though he does not have full insight into his illness and remains with some ambivalence about medications, he agrees that medications have helped him and says he will continue to take them. Patient's mother present and the 2 of them agreed she would help him to remain adherent. Patient does not want to go to any programs or therapy. Patient stated, talk therapy is bullshit . Continue mediations as ordered. For some reason, lithium level ordered a day or early; will get another level to appropriately establish steady state level. While patient remains vulnerable to both relapse and dysregulation, he is stable, organized and manic symptoms significantly reduced. He returns to live with his mother who is supportive. Patient is not in imminent risk for harm to self or others. Will proceed with discharge plans 09/22: Patient remains improved. He reports feeling good today and looking forward to being discharged tomorrow. [place] level 0.29, patient is aware he will have to continue to have labs drawn to monitor his levels when discharged. Patient looking forward to discharge today. He agrees to continue taking [place] daily. Time spent discussing smoking cessation with patient: 3 to 10 minutes Status at Discharge Cognitive/behavioral status at discharge: Pt is alert and oriented; behavior is cooperative, friendly and calm; patient is not in distress; dressed in casual attire; mood is described as good and affect congruent; eye contact appropriate; Speech is normal rate, volume and prosody and not pressured; no psychomotor agitation/retardation present; thought process is organized and goal directed; Thought content is on tx; otherwise pertinent to relevant topics and without any delusional content, paranoid ideat ions or grandiosity; denies any SI/HI. There is no evidence of perceptual disturbance.Patients insight and judgment appear fair. Functional status at discharge: independent ambulation Overall status at discharge: patient is back to baseline Time Spent with Patient Time attestation: Total time managing care of this patient today ____ minutes. Time spent: Less than 30 minutes Discharge Plan Discharge Anticipated Discharge Date/Time: 09/23/22 11:00 Patient Disposition: Home, Self-Care Discharge Diagnosis: Bipolar d/o [facility] Youngblood [Other] - 10/01/22 1:30 pm (In person. ) [facility] Pricilla Saul [Other] - 10/15/22 2:00 pm [facility] Pricilla Saul [Other] - 10/13/22 10:30 am (In person.) [facility] Support Paula Sherrie [Other] - 3-5 Days (This is substance use support reference which offer a variety of support options such as a Partial Hospitalization Program, groups etc. ) Physician,None [Primary Care Provider] - 1 Week Discharge Medications: No Action haloperidol 5 mg Tablet 5 mg PO BID PRN (Reason: Agitation) diphenhydramine HCl 50 mg Tablet 50 mg PO Q6H PRN (Reason: eps) clonazepam 0.5 mg Tablet 0.25 mg PO BID@0830,1430 lithium carbonate 300 mg Tablet Extended Release 300 mg PO BID hydroxyzine HCl 25 mg Tablet 25 mg PO Q6H PRN (Reason: Anxiety) lorazepam 1 mg Tablet 1 mg PO TID PRN (Reason: Anxiety) loratadine 10 mg Tablet 10 mg PO DAILY Discharge Orders: Discharge Order (Routine); Ordered 09/22/22 Ordered By: Shilpa Lara Diet: Regular diet Activity on Discharge: As tolerated Stand Alone Forms: Patient Portal Discharge page, Community Support Care Plan Goals: Maintain mood and safe behaviors Take medications as prescribed Continue to pursue sobriety Practice coping skills Continue with outpatient providers and reach out to them as needed Health Concerns: Mood stability and behaviors Sobriety Plan of Treatment: Follow up with your PCP, psychiatric provider and other outpatient providers regarding above concerns Take medications as prescribed Assessment: Risk assessment at time of discharge: Patient was interviewed prior to discharge and found to be fully oriented and without any SI or HI. Patient has insight and demonstrates fair judgment in terms of wanting to pursue treatment. Patient is not in imminent risk of harm to self or others and has a safety plan that includes presenting to the closest ER or calling 911 if feeling unsafe. Patient has been observed closely by nursing and unit staff throughout admission; patient has not engaged in any behaviors that suggest dangerousness to self or others and has demonstrated appropriate behaviors and impulse control. Discharge Date/Time: 09/23/22 11:06
== END 2022-09-23 11:06 | disposition home or self-care (01) | DRG 885 ==
LOC: HO.ED 09-10 06:58 → HO.PM5 09-10 14:12
PROVIDERS: Emergency Medicine; Social Worker; Admitting Provider Psychiatry & Neurology Psychiatry; Emergency Provider Emergency Medicine Emergency Medical Services; Visit Provider Registered Nurse
DX: F31.10 Bipolar disorder, current episode manic without psychotic features, unspecified (principal); F15.10 Other stimulant abuse, uncomplicated; Z91.148 Patient's other noncompliance with medication regimen for other reason; Z20.822 Contact with and (suspected) exposure to COVID-19; Z79.899 Other long term (current) drug therapy
CPT/HCPCS: 36415; 80053; 80076; 80164; 80178; 80307; 81001; 82077; 82140; 82550; 82565; 82947; 84443; 84520; 85025; 87635; 93005; 99285; S9485

== ENCOUNTER 2022-09-27 22:12 | Inpatient (IN) | payer OTHER, SELFPAY ==
[2022-09-27 22:33] VITALS: BMI 19.2
--- NOTE | 2022-09-27 22:33 | ED_ITS ---
HPI - Psych General Chief Complaint: Psychiatric Symptoms Stated Complaint: Crisis HI/SI Time Seen by Provider: 09/27/22 22:18 Source: EMS Mode of arrival: EMS Limitations: altered mental status History of Present Illness HPI Narrative: 37-year-old male recent diagnosis of bipolar disorder presents to the emergency department via ambulance with police and EMS with psychosis. According to police mother called 911 stating son was being bipolar and she was afraid to go into the home. Mother reported to police that this patient was admitted here at this hospital for psychiatric reasons about 2 weeks ago. Today she her to patient stating I think I am schizophrenic and was making suicidal statements which made mom very then patient said if I get rid of both being will think she is keeping a low-profile and have the house to myself mom took this as a threatening and she interpreted it as patient wanted to harm her. When police arrived on scene patient was nonfunctional, not answering questions, sexually aggressive towards police officers, masturbating, not following directions, trying to hug and kiss officers, being extremely inappropriate. He is not med compliant. Unable to obtain history or review of systems from patient as he is acutely manic and going on random tangents. Screaming out racial slurs and homophobic comments. He is however alert and oriented x4 unable to answer person, place time and situation. Related Data Home Medications Medication Instructions Recorded Confirmed No Known Home Meds 09/27/22 09/27/22 Allergies Allergy/AdvReac Type Severity Reaction Status Date / Time No Known Allergies Allergy Verified 09/08/22 18:54 Review of Systems Review of Systems: Yes Unobtainable due to mental status PMFSH Past Medical History Attestation statement: The following information was validated with the patient. Source: old records reviewed and nursing notes reviewed Social History Social History Household Members: Family Housing: House Do you presently have visiting nurse or other home services: No Patient Tobacco Use Status: Never used Tobacco Advance Directives: No Advance Directives Information Provided: Yes service: Yes Sexual orientation: Unable to collect Physical Exam Vital Signs: Vital Signs: Last Vital Signs Resp 16 09/27/22 23:45 BMI result Body Mass Index 19.2 Patient's respiratory rate stable refusing all other vital Appearance: Alert.? Oriented X3.? No acute distress.? Patient screaming out inappropriate comments, irrational behavior. Head: Normocephalic, atraumatic, no step-offs or deformities Eyes: Pupils equal, round and reactive to light.? ENT: Pharynx normal.? Neck: Normal inspection.? Neck supple.? CVS: Normal heart rate and rhythm.? Pulses normal.? Respiratory: No respiratory distress.? Breath sounds normal.? Abdomen: Soft and nontender.? Skin: Skin warm and dry.? Normal skin color.? Normal skin turgor.? Extremities: No lower extremity edema.? No calf ttp. 5/5 strength to bilateral upper and lower extremities Neuro: Oriented X 3.? No motor deficit.? No sensory deficit. CN 2-12 intact Course Reevaluation(s) Reevaluation #1: According to chart review patient was hospitalized from September 11 to 09/23/2022 with sandra. Time: 00:04 Reevaluation #2: Patient not allowing blood work. Time: 00:05 Reevaluation #3: At this time patient will be placed in observation to allow more time to be evaluated by the behavioral health team. They will obtain labs and patient wakes up. Time: 00:26 Medications Administered Discontinued Medications Generic Name Dose Route Start Last Admin Trade Name Freq PRN Reason Stop Dose Admin Diphenhydramine HCl 50 mg 09/27/22 22:39 09/27/22 22:45 Diphenhydramine Hcl 50 Mg/Ml Vial IM 09/27/22 22:40 50 mg ONCE ONE Administration Haloperidol Lactate 5 mg 09/27/22 22:39 09/27/22 22:45 Haloperidol Lactate 5 Mg/Ml Vial IM 09/27/22 22:40 5 mg STAT STA Administration Lorazepam 2 mg 09/27/22 22:39 09/27/22 22:45 Lorazepam 2 Mg/Ml Vial IM 09/27/22 22:40 2 mg ONCE ONE Administration Medical Decision Making Medical Decision Making [facility] Narrative: 37-year-old male presents with acute psychosis brought in by EMS and police. Patient came in on a Section 12 During my history and physical exam patient became uncooperative 2238, tried running out of the department, combative toward security, nursing staff, restraints were ordered for patient safety. Patient placing self and others at risk. Physical exam patient with irrational behavior, bizarre affect. Likely acute sandra and psychosis likely secondary to bipolar disorder. Other differentials include alcohol intoxication polysubstance abuse. Unlikely metabolic derangement Plan medical clearance evaluation by behavioral health team Differential Diagnosis Differential Diagnoses: The differential diagnosis associated with the presentation includes Likely acute sandra and psychosis likely secondary to bipolar disorder. Other differentials include alcohol intoxication polysubstance abuse. Unlikely metabolic derangement Admission/Observation Consideration of admission/observation: Escalation of care including admission/observation considered Likely will require inpatient psychiatric admission Lab Data MDM Lab Attestation statement: I reviewed the patient's lab results. Labs: Lab Results 09/27/22 Range/Units 23:11 COVID-19 ([facility]) Negative (Negative) COVID-19 Clin Com See Note External Record Review External record reviewed: Inpatient record, Office record, Outpatient record, Prior outpatient labs, Prior outpatient radiology, Primary care record and Outside ED record Core Measures AMI core measures followed: Yes Measure exclusions: not indicated Critical Care Time Critical Care Time Critical Care Time: No Discharge Plan Discharge Clinical Impression: Psychosis, Sandra Patient Disposition: Still a Patient Prescriptions: No Action No Known Home Meds Interventions: [place]-Suicide Risk Severity Scale Last Done: 09/27/22 22:52
[2022-09-27 22:45] VITALS: RESP 22
[2022-09-27] MEDS: diphenhydrAMINE HCL 50 MG/ML VIAL IM (22:45)
[2022-09-27] MEDS: LORazepam 2 MG/ML VIAL IM (22:45)
[2022-09-27] MEDS: Haloperidol Lactate 5 MG/ML VIAL IM (22:45)
[2022-09-27 23:00] VITALS: RESP 20
[2022-09-27 23:15] VITALS: RESP 18
[2022-09-27 23:30] VITALS: RESP 18
[2022-09-27 23:33] LABS: COVID-19 Test Negative (Negative); IDNOW Serial# 6674DD1D
--- NOTE | 2022-09-27 23:41 | PC.NURSE ---
At the time of arrival patient was extremely restless, paranoid, hyper-sexual, disrobing and playing with private parts, intrusive, at time combative, loud and disruptive, disoriented/requiring continuos redirection, security in pod, provider notified/ordered Haldol 5 mg IM, Ativan 2 mg IM, and Benadryl 50 mg IM administered as ordered at 2245 with + effect, patient is on 1:1 for his behavioral presentation, unable to obtain labs at this time, patient is currently sleeping, respiration +/=/non-labored bilaterally, care consult ordered/pending evaluation, will continue to monitor
[2022-09-27 23:45] VITALS: RESP 16
--- NOTE | 2022-09-28 06:04 | PC.NURSE ---
Patient S/P chemical restraint, slept through the night, no distress observed/reported, med rec completed/currently not on any medication, care consult ordered pending evaluation, labs unable to obtained due to restraint, thought content paranoid/hypersexual, will continue to monitor.
--- NOTE | 2022-09-28 06:38 | PC.NURSE ---
Patient attempted to provide urine sample but couldn't go at this time, will continue to monitor.
--- NOTE | 2022-09-28 06:43 | PC.NURSE ---
1:1 observation discontinued, patient is on 15 minutes per provider
[2022-09-28 06:48] LABS: MANUAL DIFF FLAG NO
[2022-09-28 06:49] LABS: Basophils Absolute Auto 0.1 X10*3/uL (0.0-0.2); Basophils Percent Auto 0.7 % (0-2); Eosinophils Absolute Auto 0.2 X10*3/uL (0.0-0.4); Eosinophils Percent Auto 1.4 % (0-4); Hematocrit 41.5 % (42.0-52.0); Imm Gran Abs Auto 0.05 X10*3/uL (0.00-0.03); Imm Gran Pct Auto 0.5 % (0.0-0.4); Lymphocytes Absolute Auto 2.6 X10*3/uL (1.2-4.9); Lymphocytes Percent Auto 24.4 % (20-40); Mean Corpuscular HGB Conc 33.7 g/dl (31.0-36.0); Mean Corpuscular Hemoglobin 28.8 pg (27.0-33.0); Mean Corpuscular Volume 85.4 fL (80.0-98.0); Mean Platelet Volume 9.2 fL (9.4-12.4); Monocytes Absolute Auto 0.9 X10*3/uL (0.1-1.2); Neutrophils Absolute Auto 6.7 x10*3/uL (2.0-8.3); Platelet Count 269 X10*3/uL (160-400); Red Blood Count 4.86 X10*6/uL (4.60-5.80); White Blood Count 10.5 X10*3/uL (4.8-10.8)
[2022-09-28 06:51] VITALS: BP 126/72; PULSE 79; RESP 16; TEMP 36.6; O2SAT 95
[2022-09-28 07:22] LABS: Alanine Aminotransferase 46 U/L (0-40); Albumin Level 4.4 g/dL (3.5-5.0); Alkaline Phosphatase 109 U/L (39-117); Anion Gap 11 (12-20); Aspartate Amino Transferase 27 U/L (5-37); Bilirubin Total 0.8 mg/dL (0.0-1.0); Blood Urea Nitrogen 31 mg/dL (9-16); Calcium 9.7 mg/dL (8.4-10.2); Carbon Dioxide 28 mmol/L (22-29); Chloride 107 mmol/L (96-108); Creatinine Clr Calc Pharmacy 85.2; Estimated Glomerular Filt Rate > 60; Ethanol < 10 mg/dL; Glucose Random 108 mg/dL (60-115); Magnesium 2.5 mg/dL (1.6-2.6); Potassium 3.9 mmol/L (3.3-5.1); Salicylate < 5.0 mg/dL (15-30); Sodium 142 mmol/L (135-145); Total Protein 6.7 g/dL (6.5-8.0)
[2022-09-28 07:27] LABS: Troponin-I High Sensitivity < 2.7 ng/L (<3.5-35.0)
[2022-09-28 07:44] LABS: Acetaminophen LAB < 17 mcg/mL (<30)
--- NOTE | 2022-09-28 10:03 | PHA.MEDREC ---
Pharmacy Consult ? Medication Reconciliation Pharmacy has completed the medication reconciliation. Patient non compliant with meds. put in current med from list faxed up by nurse
[2022-09-28 10:08] LABS: Appearance Urine Clear; Color Urine Dark Yellow; Glucose Urine UA Negative (Negative); Leukocyte Esterase Urine Small (1+) (Negative); Nitrite Urine Negative (Negative); PH 5.5 (5.0-9.0); Specific Gravity - Urine >= 1.030 (1.005-1.025); UMIC TRIGGER UACC YES; Urine Blood Trace (Negative); Urine Ketones Trace mg/dL (Negative); Urine Protein 30 (1+) mg/dL (Neg-Trace)
[2022-09-28 10:15] LABS: Amphetamine Screen Urine POSITIVE (Not Detect); Barbiturates, Urine Not Detected (Not Detect); Benzodiazepines Screen Urine Not Detected (Not Detect); Cannabinoid Screen Urine POSITIVE (Not Detect); Cocaine Screen Urine Not Detected (Not Detect); Fentanyl, urine Not Detected (Not Detect); Opiate Screen Urine Not Detected (Not Detect); Phencyclidine Screen Urine Not Detected (Not Detect)
[2022-09-28 10:21] LABS: Bacteria Urine None Seen (None Seen); Calcium Oxalate Crystals Urine Present; Squamous Epithelial Cell Urine 0-2 /HPF (0-2); UACC Culture Trigger YES; WBC Urine 21-50 /HPF (0-5)
--- NOTE | 2022-09-28 18:44 | MHC.CARE ---
Patient too decompensated for the CARE Team to effectively interview and determine appropriate disposition. Plan is for patient to remain in the ED on a Section 12A and be reassessed in the morning. Provider updated
[2022-09-28] MEDS: HaloperidoL 5 MG TABLET PO ×2 (19:08→21:28)
[2022-09-28] MEDS: Lithium Carbonate ER 300 MG TABLET.ER 600 MG PO (19:08)
[2022-09-28] MEDS: LORazepam 1 MG TABLET 2 MG PO (19:54)
[2022-09-29 05:19] VITALS: BP 126/80; PULSE 84; RESP 19; TEMP 36.5; O2SAT 98
--- NOTE | 2022-09-29 05:39 | PC.NURSE ---
Patient slept through the night, no distress observed/reported, behavior unpredictable but [id number], medication compliant, VSS, patient was seen by care team, disposition section 12 VS inpatient bed search, will continue to monitor
[2022-09-29] MEDS: HaloperidoL 5 MG TABLET PO ×2 (08:07→20:21)
[2022-09-29 08:14] LABS: Lithium 0.29 mmol/L (0.60-1.20)
[2022-09-29 08:20] VITALS: BP 119/79; PULSE 105; RESP 16; TEMP 36.8; O2SAT 96
--- NOTE | 2022-09-29 10:39 | PC.NURSE ---
Pt was up to [place] social with Staff and Peers. ate breakfast. Restless, in and out of bedroom, mood is unstable, from joking, laughing, crying, to singing in his bed, all within a matter of minutes. Pt asking when he can go home, and when he will be seen. Care Team aware.
--- NOTE | 2022-09-29 13:06 | ECG_ITS ---
Test Reason : check for prolong QT Blood Pressure : / mmHG Vent. Rate : 071 BPM Atrial Rate : 071 BPM P-R Int : 136 ms QRS Dur : 088 ms QT Int : 390 ms P-R-T Axes : 029 022 007 degrees QTc Int : 423 ms Normal sinus rhythm with sinus arrhythmia Normal ECG When compared with ECG of 10-SEP-2022 09:52, No significant change was found Referred By: Paula Padilla Electronically Signed By:Derian Yates
--- NOTE | 2022-09-29 13:45 | PM.PSYCN ---
History of Present Illness Date of Service: 09/29/2022 Chief Complaint: Sandra Discussed with referring provider: Yes Sources of Information: patient interviewed, chart reviewed and crisis/core team assessment reviewed HPI Narrative: Mr. Milner is a 37 year-old male recently d/c from . He relapsed on meth and became psychotic, labile and intrusive. He was also reporting suicidal and homicidal ideation. Utox positive for amphetamines. According to ED note, When police arrived patient was was nonfunctional, not answering questions, sexually aggressive towards police officers, masturbating, not following directions, trying to hug and kiss officers. In ED patient continues to present as hyperverbal, intrusive, labile, irritable and threatening, screaming out racial slurs and homophobic comments. We discussed restarting medications including haldol and lithium. Past Psychiatric History: Further information needed. Per ED and CARE team report, patient said he has a diagnosis of schizophrenia Per CARE team, he was admitted to [facility] in 2004 for SI. [facility], [facility] Medical History (Updated 10/01/22 @ 00:10 by Rola Claros) Bipolar I disorder Methamphetamine use disorder, severe Social History: Lives with his mother. He was raised by mother and step father. He graduated and went to [employer]. 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 Hasn't worked for past 2 years. Never . No children. Trauma History: Unknown Diagnostics Vital Signs (24Hr): Vital Signs - 24 hr 09/28/22 15:52 09/29/22 05:19 09/29/22 08:20 Temperature 97.7 F 98.3 F Pulse Rate 84 105 H Respiratory Rate 19 16 Blood Pressure 126/80 119/79 Pulse Oximetry 98 96 Oxygen Delivery Method Room Air Room Air Room Air BMI result Body Mass Index 19.2 Labs 09/28/22 06:44 09/28/22 06:44 Labs: Laboratory Results - last 48 hr 09/27/22 09/28/22 09/28/22 23:11 06:44 06:44 WBC 10.5 RBC 4.86 Hgb 14.0 Hct 41.5 L MCV 85.4 MCH 28.8 MCHC 33.7 RDW 13.0 Plt Count 269 MPV 9.2 L Immature Gran % (Auto) 0.5 H Neut % (Auto) 64.0 Lymph % (Auto) 24.4 [place] % (Auto) 9.0 Eos % (Auto) 1.4 Baso % (Auto) 0.7 Lymph # (Auto) 2.6 [place] # (Auto) 0.9 Eos # (Auto) 0.2 Baso # (Auto) 0.1 Abs Immat Gran (auto) 0.05 H Absolute Neuts (auto) 6.7 Absolute Nucleated RBC 0.000 Nucleated RBC % (auto) 0.0 Sodium 142 Potassium 3.9 Chloride 107 Carbon Dioxide 28 Anion Gap 11 L BUN 31 H Creatinine 0.99 Estim Creat Clear Calc 85.2 Estimated GFR > 60 Random Glucose 108 Calcium 9.7 Magnesium 2.5 Total Bilirubin 0.8 AST 27 ALT 46 H Alkaline Phosphatase 109 Total Creatine Kinase 557 H Troponin I High Sens Total Protein 6.7 Albumin 4.4 Urine Color Urine Appearance Urine pH Ur Specific [place] Urine Protein Urine Glucose (UA) Urine Ketones Urine Blood Urine Nitrite Ur Leukocyte Esterase Urine RBC Urine WBC Ur Squamous Epith Cells Calcium Oxalate Crystal Urine Bacteria Hyaline Casts Salicylates < 5.0 L Urine Opiates Screen Urine Fentanyl Screen Acetaminophen < 17 Ur Barbiturates Screen Ur Phencyclidine Scrn Ur Amphetamines Screen U Benzodiazepines Scrn [place] Urine Cocaine Screen U Marijuana (THC) Screen Ethyl Alcohol < 10 COVID-19 ([facility]) Negative COVID-19 Clin Com See Note 09/28/22 09/28/22 09/28/22 06:44 09:59 09:59 WBC RBC Hgb Hct MCV MCH MCHC RDW Plt Count MPV Immature Gran % (Auto) Neut % (Auto) Lymph % (Auto) [place] % (Auto) Eos % (Auto) Baso % (Auto) Lymph # (Auto) [place] # (Auto) Eos # (Auto) Baso # (Auto) Abs Immat Gran (auto) Absolute Neuts (auto) Absolute Nucleated RBC Nucleated RBC % (auto) Sodium Potassium Chloride Carbon Dioxide Anion Gap BUN Creatinine Estim Creat Clear Calc Estimated GFR Random Glucose Calcium Magnesium Total Bilirubin AST ALT Alkaline Phosphatase Total Creatine Kinase Troponin I High Sens < 2.7 Total Protein Albumin Urine Color Dark Yellow Urine Appearance Clear Urine pH 5.5 Ur Specific [place] >= 1.030 H Urine Protein 30 (1+) H Urine Glucose (UA) Negative Urine Ketones Trace Urine Blood Trace H Urine Nitrite Negative Ur Leukocyte Esterase Small (1+) H Urine RBC 6-10 H Urine WBC 21-50 H Ur Squamous Epith Cells 0-2 Calcium Oxalate Crystal Present Urine Bacteria None Seen Hyaline Casts 3-5 Salicylates Urine Opiates Screen Not Detected Urine Fentanyl Screen Not Detected Acetaminophen Ur Barbiturates Screen Not Detected Ur Phencyclidine Scrn Not Detected Ur Amphetamines Screen POSITIVE H U Benzodiazepines Scrn Not Detected [place] Urine Cocaine Screen Not Detected U Marijuana (THC) Screen POSITIVE H Ethyl Alcohol COVID-19 ([facility]) COVID-19 Yhat Com 09/29/22 08:00 WBC RBC Hgb Hct MCV MCH MCHC RDW Plt Count MPV Immature Gran % (Auto) Neut % (Auto) Lymph % (Auto) [place] % (Auto) Eos % (Auto) Baso % (Auto) Lymph # (Auto) [place] # (Auto) Eos # (Auto) Baso # (Auto) Abs Immat Gran (auto) Absolute Neuts (auto) Absolute Nucleated RBC Nucleated RBC % (auto) Sodium Potassium Chloride Carbon Dioxide Anion Gap BUN Creatinine Estim Creat Clear Calc Estimated GFR Random Glucose Calcium Magnesium Total Bilirubin AST ALT Alkaline Phosphatase Total Creatine Kinase Troponin I High Sens Total Protein Albumin Urine Color Urine Appearance Urine pH Ur Specific [place] Urine Protein Urine Glucose (UA) Urine Ketones Urine Blood Urine Nitrite Ur Leukocyte Esterase Urine RBC Urine WBC Ur Squamous Epith Cells Calcium Oxalate Crystal Urine Bacteria Hyaline Casts Salicylates Urine Opiates Screen Urine Fentanyl Screen Acetaminophen Ur Barbiturates Screen Ur Phencyclidine Scrn Ur Amphetamines Screen U Benzodiazepines Scrn [place] 0.29 L Urine Cocaine Screen U Marijuana (THC) Screen Ethyl Alcohol COVID-19 ([facility]) COVID-19 Clin Com Mental Status Exam Mental Status Exam Narrative: Pt presents as labile, significant psychomotor agitation at times. difficult to engage in any type of meaning conversation. He is guarded and irritable and declines to speak with this financial writer. He appears internally preoccupied. Impaired judgment and insight. Medications Medications Current Medications Haloperidol (Haloperidol 5 Mg Tablet) 5 mg PO BID [facility] Last Admin: 09/29/22 08:07 Dose: 5 mg [place] Carbonate ([place] Carbonate Er 300 Mg Tablet.Er) 600 mg PO BEDTIME [facility] Last Admin: 09/28/22 19:08 Dose: 600 mg Pharmacy Consult (Consult Rx Perform Med Rec) 1 each MISCELLANE ONCE PRN PRN Reason: Consult order Allergies Allergies Allergy/AdvReac Type Severity Reaction Status Date / Time No Known Allergies Allergy Verified 09/08/22 18:54 Assessment & Plan Assessment & Plan (1) Bipolar I disorder: Status: Acute Code(s): F31.9 - Bipolar disorder, unspecified (2) Methamphetamine use disorder, severe: Status: Acute Code(s): F15.20 - Other stimulant dependence, uncomplicated Plan Mr. Milner is a 37 year-old male with hx of Bipolar Disorder and methamphetamine use disorder, recently discharged from . Relapsed on meth, presents to ED as agitated, labile, intrusive, threatening to police and staff here in that hospital. PLAN 1. Pt needs inpatient level of care for safety, containment and stabilization due to significant harm to others due to exacerbation of psychosis and agitation. 2. Restart haldol and lithium. Total time managing care of this patient today ____ minutes.
--- NOTE | 2022-09-29 13:53 | MHC.CARE ---
Patient evaluated and will require an inpatient psychiatric admission, will remain in the ED until an appropriate placement is found.
[2022-09-29] MEDS: Lithium Carbonate ER 300 MG TABLET.ER 600 MG PO (20:21)
[2022-09-29 20:26] VITALS: BP 117/72; PULSE 85; RESP 18; TEMP 36.7; O2SAT 98
[2022-09-29 22:08] VITALS: BP 135/80; PULSE 91; TEMP 36.4; O2SAT 96
--- NOTE | 2022-09-30 00:43 | PC.ADMIT ---
Patient is a 37 year old single Amharic speaking male, admitted as a CV admission to at 204109/29/22 and placed on 15 minute safety checks. Patient was medically cleared in the [facility], evaluated by the CARE team and deemed in need of IPLOC secondary to noncompliance with his medications, use of amphetamines not prescribed and ingestion of marijuana. Patient said he was very tired and did want to sign any legals. He did answer safety tool questions and admission assessment questions. Although his intake indicated he was acting bizarrely patient denied any AH or VH. He also denied any SI or HI and simply laughed and said I'm just really tired, can I go to bed now? He was recently on and was doing good for a few days and was medication compliant. However, his mother said when he used the amphetamines and marijuana his behavior became erratic and he was making suicidal statements and self dialoguing. She was afraid for her safety and for the patient's safety and that is why she called an ambulance.
[2022-09-30 06:00] VITALS: BP 142/105; PULSE 109; RESP 16; TEMP 36.5; O2SAT 97
[2022-09-30 07:00] VITALS: BMI 25.3
[2022-09-30] MEDS: HaloperidoL 5 MG TABLET PO ×2 (08:39→18:47)
--- NOTE | 2022-09-30 09:37 | P.HPPS_ITS ---
HPI Date of Service: 09/30/22 Chief Complaint: Sandra Sources of Information: patient interviewed, chart reviewed and crisis/core team assessment reviewed HPI Subjective Notes: [place] Warning, Conditional Voluntary and 3 Day Narrative: Pt is a 37 yo male with history Bipolar disorder, Methamphetamine abuse, recently discharged from on 09/23/22 who returns manic and psychotic in face of non-adherence with medications and relapse with Methamphetamine. Mother called 911, reporting she was afraid of him and that he was making suicidal statements and also a homicidal comment about getting rid of both of them which she interpreted as a threat. According to ED note, When police arrived patient was was nonfunctional, not answering questions, sexually aggressive towards police officers, masturbating, not following directions, trying to hug and kiss officers. In ED patient was manic, Screaming out racial slurs and homophobic comments. He was restarted on lithium and Haldol and started to come down somewhat. Once on the unit, patient was pacing in the room and said I do not know why I am back here again; he asked bond writer to read account of events prior to this admission but immediately became alarmed to learn that his mother was afraid of him and repeated over and over I would Never hurt my mother. I would never hurt my mother... I love my mother.. I love my mother. He said he did not want to hear anymore about it. Patient said only took some of his medication and not consistently; he said that he did use methamphetamines. Patient said he needed a break from talking and asked to exit the room. He later came up to bond writer and asked if he has crazy or schizophrenic; bond writer explained bipolar disorder and affects of methamphetamine use. Past Psychiatric History: Further information needed. Per ED and CARE team report, patient said he has a diagnosis of schizophrenia Per CARE team, he was admitted to [facility] in 2004 for SI. Medical Evaluation Reviewed: Yes [facility] Medical History (Updated 09/30/22 @ 14:27 by Gianfranco Emmanuel MD) Bipolar I disorder Methamphetamine use disorder, severe Family History: Unknown at this time Social History: Lives with his mother. He was raised by mother and step father. He graduated and went to [facility] [facility] [employer]. 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 Hasn't worked for past 2 years. Never . No children. Substance History: Severe methamphetamine abuse Trauma History: Unknown Diagnostics Vital Signs (24Hr): Vital Signs - 24 hr 09/29/22 20:26 09/29/22 22:08 09/30/22 06:00 Temperature 98.1 F 97.5 F 97.7 F Pulse Rate 85 91 109 H Respiratory Rate 18 16 Blood Pressure 117/72 135/80 142/105 H Pulse Oximetry 98 96 97 Oxygen Delivery Method Room Air Room Air Room Air BMI result Body Mass Index 19.2 Labs 09/28/22 06:44 09/28/22 06:44 Labs: Laboratory Results - last 48 hr 09/28/22 09/28/22 09/29/22 09:59 09:59 08:00 Urine Color Dark Yellow Urine Appearance Clear Urine pH 5.5 Ur Specific Rector >= 1.030 H Urine Protein 30 (1+) H Urine Glucose (UA) Negative Urine Ketones Trace Urine Blood Trace H Urine Nitrite Negative Ur Leukocyte Esterase Small (1+) H Urine RBC 6-10 H Urine WBC 21-50 H Ur Squamous Epith Cells 0-2 Calcium Oxalate Crystal Present Urine Bacteria None Seen Hyaline Casts 3-5 Urine Opiates Screen Not Detected Urine Fentanyl Screen Not Detected Ur Barbiturates Screen Not Detected Ur Phencyclidine Scrn Not Detected Ur Amphetamines Screen POSITIVE H U Benzodiazepines Scrn Not Detected [place] 0.29 L Urine Cocaine Screen Not Detected U Marijuana (THC) Screen POSITIVE H Meds/Allergies Meds Home Medications Medication Instructions Recorded Confirmed Type clonazepam 0.5 mg tablet 0.25 mg PO BID@0830,1430 09/28/22 09/28/22 History diphenhydramine HCl 50 mg tablet 50 mg PO Q6H PRN eps 09/28/22 09/28/22 History haloperidol 5 mg tablet 5 mg PO BID PRN Agitation 09/28/22 09/28/22 History hydroxyzine HCl 25 mg tablet 25 mg PO Q6H PRN Anxiety 09/28/22 09/28/22 History lithium carbonate 300 mg 300 mg PO BID 09/28/22 09/28/22 History tablet,extended release loratadine 10 mg tablet 10 mg PO DAILY 09/28/22 09/28/22 History lorazepam 1 mg tablet 1 mg PO TID PRN Anxiety 09/28/22 09/28/22 History Allergies Allergies Allergy/AdvReac Type Severity Reaction Status Date / Time No Known Allergies Allergy Verified 09/08/22 18:54 Mental Status Exam Mental Status Exam Narrative: Pt is alert and oriented; behavior is anxious, pacing; dressed in hospital attire with, with adequate hygiene; mood is described as I do not know and affect constricted, labile; eye contact appropriate; Speech is moderately pressured, sometimes loud but normal prosody; intermittent psychomotor agitation present; thought process can be goal directed but also somewhat disorganized; Thought content is processing events; currently denies any SI/HI. Patient appears internally preoccupied; Patients insight and judgment are impaired. Assessment & Plan Assessment & Plan (1) Bipolar I disorder: Status: Acute Code(s): F31.9 - Bipolar disorder, unspecified (2) Methamphetamine use disorder, severe: Status: Acute Code(s): F15.20 - Other stimulant dependence, uncomplicated Plan Pt is a 37 yo male with history Bipolar disorder, Methamphetamine abuse, recently discharged from on 09/23/22 who returns manic and psychotic in face of non-adherence with medications and relapse with Methamphetamine. -patient reports he only took some of the medications on discharge and relapsed with methamphetamine; he was visibly upset to hear of his behaviors that resulted in this admission; remains willing to take medication. Plan: CV Q 15 minute checks Continue Haldol 5 mg b.i.d. Increased lithium to 900 mg q.h.s. (patient was subtherapeutic on 600 mg) Haldol/Ativan/Benadryl p.r.n. for agitation Will get collateral from mother Patient educated on: diagnosis and substance abuse Informed Consent: further education needed Reason for continued inpatient stay Substantial Risk for: inability to function and rapid decompensation Statement Statement: I have reviewed the history and physical and performed a pertinent examination on my patient. No changes have occurred unless specified. If the History and Physical was not performed prior to admission, the Hospitalist's service will be consulted for completing the admission physical. Time Spent With Patient Time: Total time managing care of this patient today ____ minutes.
[2022-09-30 10:22] LABS: Alanine Aminotransferase 35 U/L (0-40); Albumin Level 4.5 g/dL (3.5-5.0); Alkaline Phosphatase 103 U/L (39-117); Anion Gap 10 (12-20); Aspartate Amino Transferase 25 U/L (5-37); Bilirubin Total 0.6 mg/dL (0.0-1.0); Blood Urea Nitrogen 16 mg/dL (9-16); Calcium 9.9 mg/dL (8.4-10.2); Carbon Dioxide 28 mmol/L (22-29); Chloride 107 mmol/L (96-108); Creatinine Clr Calc Pharmacy 85.2; Estimated Glomerular Filt Rate > 60; Glucose Fasting 111 mg/dL (60-99); Potassium 4.3 mmol/L (3.3-5.1); Sodium 141 mmol/L (135-145); Total Protein 6.8 g/dL (6.5-8.0)
[2022-09-30 15:44] VITALS: BP 136/74; PULSE 79; TEMP 36.4
[2022-09-30] MEDS: Lithium Carbonate ER 450 MG TABLET.ER 900 MG PO (18:48)
[2022-10-01] MEDS: traZODone HCL 50 MG TABLET PO (01:37)
[2022-10-01] MEDS: HaloperidoL 5 MG TABLET PO ×2 (08:45→19:02)
[2022-10-01 08:54] VITALS: BP 142/77; PULSE 106; RESP 16; TEMP 36.8; O2SAT 96
--- NOTE | 2022-10-01 10:03 | P.PNPSI_ITS ---
Subjective Subjective Date of Service: 10/01/22 Reason For Visit: Sandra Interim History: met w/t pt, discussed with team slept; still some manic behaviors (skipping down hallway) but overall more organized, in improved behavioral control pt ambivalent about his need for medication; he leans towards believing he needs it for stability and is willing to consider he struggles witn sandra/bipolar, however remains w/ some skepticism. Pt says he hates methamphetamine and will never use it again; he is convinced that he can avoid it and stay sober despite discussion/education on nature of addiction. Pt says he was discharged from for methamphetamine use... Pt did not want to know details of events prior to this admission saying he's not emotionally ready to hear about it yet discussed more of hx, time/experience in which he enjoyed. Mental Status Exam Mental Status Exam Narrative: Pt is alert and oriented; behavior is hypomanic but more organized overall; cooperative but also guarded; dressed in hospital attire with, with adequate hygiene; mood is described as ok and affect constricted, labile; eye contact appropriate; Speech is mildly pressured, sometimes loud but normal prosody; intermittent psychomotor agitation present; thought process can be goal directed but also somewhat disorganized; Thought content is processing events; currently denies any SI/HI. Patient does not appear internally preoccupied; Patients insight and judgment are impaired but improving. Diagnostics Vital Signs (24Hr): Vital Signs - 24 hr 09/30/22 15:44 10/01/22 08:54 Temperature 97.5 F Pulse Rate 79 106 H Respiratory Rate 16 Blood Pressure 136/74 142/77 H Pulse Oximetry 96 Oxygen Delivery Method Room Air BMI result Body Mass Index 25.3 Labs 09/28/22 06:44 09/30/22 08:51 Labs: Laboratory Results - last 48 hr 09/30/22 08:51 Sodium 141 Potassium 4.3 Chloride 107 Carbon Dioxide 28 Anion Gap 10 L BUN 16 Creatinine 0.99 Estim Creat Clear Calc 85.2 Estimated GFR > 60 Fasting Glucose 111 H Calcium 9.9 Total Bilirubin 0.6 AST 25 ALT 35 Alkaline Phosphatase 103 Total Protein 6.8 Albumin 4.5 Medications Medications Current Medications Acetaminophen (Acetaminophen 325 Mg Tablet) 650 mg PO Q6H PRN PRN Reason: Headache/Pain Mild Scale (1-3) Al Hydroxide/Mg Hydroxide (Magnesium Hydrox/Alum Hydrox 30 Ml Oral.Susp) 30 ml PO Q6H PRN PRN Reason: Heartburn/Nausea Diphenhydramine HCl (Diphenhydramine Hcl 25 Mg Capsule) 50 mg PO Q4H PRN PRN Reason: agitation Haloperidol (Haloperidol 5 Mg Tablet) 5 mg PO BID [facility] Last Admin: 10/01/22 08:45 Dose: 5 mg Haloperidol (Haloperidol 5 Mg Tablet) 5 mg PO Q4H PRN PRN Reason: agitation Hydroxyzine HCl (Hydroxyzine Hcl 25 Mg Tablet) 25 mg PO Q6H PRN PRN Reason: Anxiety [place] Carbonate ([place] Carbonate Er 450 Mg Tablet.Er) 900 mg PO BEDTIME [facility] Last Admin: 09/30/22 18:48 Dose: 900 mg Lorazepam (Lorazepam 1 Mg Tablet) 2 mg PO Q4H PRN PRN Reason: agitation Magnesium Hydroxide (Milk Of Magnesia 30 Ml Oral.Susp) 30 ml PO DAILY PRN PRN Reason: Constipation Nicotine Polacrilex (Nicotine Polacrilex 2 Mg Gum) 4 mg BUCCAL Q2H PRN PRN Reason: Nicotine Cravings Trazodone HCl (Trazodone Hcl 50 Mg Tablet) 50 mg PO BEDTIME MRX1 PRN PRN Reason: Insomnia Last Admin: 10/01/22 01:37 Dose: 50 mg Allergies Allergies Allergy/AdvReac Type Severity Reaction Status Date / Time No Known Allergies Allergy Verified 09/08/22 18:54 Assessment & Plan Assessment & Plan (1) Bipolar I disorder: Status: Acute Code(s): F31.9 - Bipolar disorder, unspecified (2) Methamphetamine use disorder, severe: Status: Acute Code(s): F15.20 - Other stimulant dependence, uncomplicated Plan Pt is a 37 yo male with history Bipolar disorder, Methamphetamine abuse, recently discharged from on 09/23/22 who returns manic and psychotic in face of non-adherence with medications and relapse with Methamphetamine. -patient reports he only took some of the medications on discharge and relapsed with methamphetamine; he was visibly upset to hear of his behaviors that resulted in this admission; remains willing to take medication. Hospital course: 10/01 some hypomania but pt's behaviors seem overall more organized; signed a 3 day and says when can i go? pt has limited insight into illness and severity of meth addiction; continue current treatment plan Plan: 3 day Q 15 minute checks Continue Haldol 5 mg b.i.d. Copntinue lithium to 900 mg q.h.s. (patient was subtherapeutic on 600 mg) Haldol/Ativan/Benadryl p.r.n. for agitation Will get collateral from mother Patient educated on: diagnosis, medication risk/benefits and substance abuse Informed Consent: understands Reason for continued inpatient stay Substantial Risk for: rapid decompensation Time Spent With Patient Time: Total time managing care of this patient today ____ minutes.
[2022-10-01 10:06] LABS: Other Ref Test - Misc SEE COMMENTS
[2022-10-01] MEDS: hydrOXYzine HCL 25 MG TABLET PO (14:28)
[2022-10-01 16:13] VITALS: BP 139/86; PULSE 88
[2022-10-01] MEDS: Lithium Carbonate ER 450 MG TABLET.ER 900 MG PO (19:02)
[2022-10-02] MEDS: traZODone HCL 50 MG TABLET PO (00:32)
[2022-10-02] MEDS: HaloperidoL 5 MG TABLET PO ×2 (08:27→19:13)
[2022-10-02 08:36] VITALS: BP 137/91; PULSE 128; RESP 18; TEMP 36.5; O2SAT 96
--- NOTE | 2022-10-02 08:58 | HO.PSYCHPN ---
Subjective Subjective Date of Service: 10/02/22 Reason For Visit: Sandra Subjective Notes: 3 Day Interim History: Pt seen, reviewed with team. Pt denies issues of concern. Reports improvement in his sleep. Pt focused on TDN which expires 10/05. Improved mood, with some hyperactive/intense affective breakthrough Mental Status Exam Mental Status Exam Patient Appearance: Appropriate Patient Orientation: Person, Place, Time and Situation Level of Consciousness: Alert Patient Behavior: Appropriate, Talkative, Hyperactive, Cooperative and Good Eye Contact Mood Description: Cheerful and Elated Affect Description: Elated Patient Cognition Impaired: No Ability to Follow Directions: Good Speech Pattern: Spontaneous Speech Memory Description: Intact Hallucinations: None Delusions: Not Present Thought Process: Distracted Thought Content: positive for Circumstantial Judgement: Fair Diagnostics Vital Signs (24Hr): Vital Signs - 24 hr 10/01/22 16:13 10/02/22 08:36 Temperature 97.7 F Pulse Rate 88 128 H Respiratory Rate 18 Blood Pressure 139/86 137/91 H Pulse Oximetry 96 Oxygen Delivery Method Room Air BMI result Body Mass Index 25.3 Labs 09/28/22 06:44 09/30/22 08:51 Labs: Laboratory Results - last 48 hr 09/28/22 09/30/22 09:59 08:51 Sodium 141 Potassium 4.3 Chloride 107 Carbon Dioxide 28 Anion Gap 10 L BUN 16 Creatinine 0.99 Estim Creat Clear Calc 85.2 Estimated GFR > 60 Fasting Glucose 111 H Calcium 9.9 Total Bilirubin 0.6 AST 25 ALT 35 Alkaline Phosphatase 103 Total Protein 6.8 Albumin 4.5 Ref Lab Test Result SEE COMMENTS Medications Medications Current Medications Acetaminophen (Acetaminophen 325 Mg Tablet) 650 mg PO Q6H PRN PRN Reason: Headache/Pain Mild Scale (1-3) Al Hydroxide/Mg Hydroxide (Magnesium Hydrox/Alum Hydrox 30 Ml Oral.Susp) 30 ml PO Q6H PRN PRN Reason: Heartburn/Nausea Diphenhydramine HCl (Diphenhydramine Hcl 25 Mg Capsule) 50 mg PO Q4H PRN PRN Reason: agitation Haloperidol (Haloperidol 5 Mg Tablet) 5 mg PO BID [facility] Last Admin: 10/02/22 08:27 Dose: 5 mg Haloperidol (Haloperidol 5 Mg Tablet) 5 mg PO Q4H PRN PRN Reason: agitation Hydroxyzine HCl (Hydroxyzine Hcl 25 Mg Tablet) 25 mg PO Q6H PRN PRN Reason: Anxiety Last Admin: 10/01/22 14:28 Dose: 25 mg [place] Carbonate ([place] Carbonate Er 450 Mg Tablet.Er) 900 mg PO BEDTIME [facility] Last Admin: 10/01/22 19:02 Dose: 900 mg Lorazepam (Lorazepam 1 Mg Tablet) 2 mg PO Q4H PRN PRN Reason: agitation Magnesium Hydroxide (Milk Of Magnesia 30 Ml Oral.Susp) 30 ml PO DAILY PRN PRN Reason: Constipation Nicotine Polacrilex (Nicotine Polacrilex 2 Mg Gum) 4 mg BUCCAL Q2H PRN PRN Reason: Nicotine Cravings Trazodone HCl (Trazodone Hcl 50 Mg Tablet) 50 mg PO BEDTIME MRX1 PRN PRN Reason: Insomnia Last Admin: 10/02/22 00:32 Dose: 50 mg Allergies Allergies Allergy/AdvReac Type Severity Reaction Status Date / Time No Known Allergies Allergy Verified 09/08/22 18:54 Assessment & Plan Assessment & Plan (1) Bipolar I disorder: Status: Acute Code(s): F31.9 - Bipolar disorder, unspecified (2) Methamphetamine use disorder, severe: Status: Acute Code(s): F15.20 - Other stimulant dependence, uncomplicated Plan Pt is a 37 yo male with history Bipolar disorder, Methamphetamine abuse, recently discharged from on 09/23/22 who returns manic and psychotic in face of non-adherence with medications and relapse with Methamphetamine. -patient reports he only took some of the medications on discharge and relapsed with methamphetamine; he was visibly upset to hear of his behaviors that resulted in this admission; remains willing to take medication. Hospital course: 10/01 some hypomania but pt's behaviors seem overall more organized; signed a 3 day and says when can i go? pt has limited insight into illness and severity of meth addiction; continue current treatment plan. 10/02/22 No changes today Plan: 3 day Q 15 minute checks Continue Haldol 5 mg b.i.d. Copntinue lithium to 900 mg q.h.s. (patient was subtherapeutic on 600 mg) Haldol/Ativan/Benadryl p.r.n. for agitation Will get collateral from mother Patient educated on: therapeutic strategies Informed Consent: understands Reason for continued inpatient stay Substantial Risk for: rapid decompensation Time Spent With Patient Time: Total time managing care of this patient today ____ minutes.
[2022-10-02] MEDS: hydrOXYzine HCL 25 MG TABLET PO ×2 (12:54→21:35)
[2022-10-02] MEDS: LORazepam 1 MG TABLET 2 MG PO (15:06)
[2022-10-02 18:00] VITALS: BP 116/74; PULSE 84; RESP 16; TEMP 36.4; O2SAT 94
[2022-10-02] MEDS: Lithium Carbonate ER 450 MG TABLET.ER 900 MG PO (19:12)
[2022-10-03] MEDS: traZODone HCL 50 MG TABLET PO (03:01)
[2022-10-03] MEDS: HaloperidoL 5 MG TABLET PO ×2 (08:21→21:09)
[2022-10-03 08:30] VITALS: BP 120/78; PULSE 129; RESP 16; TEMP 36.8; O2SAT 97
[2022-10-03] MEDS: hydrOXYzine HCL 25 MG TABLET PO ×3 (08:59→23:42)
[2022-10-03] MEDS: LORazepam 1 MG TABLET 2 MG PO (13:53)
[2022-10-03] MEDS: diphenhydrAMINE HCL 25 MG CAPSULE 50 MG PO (13:54)
[2022-10-03 17:00] VITALS: BP 127/89; PULSE 95; TEMP 36.6; O2SAT 95
--- NOTE | 2022-10-03 18:29 | P.PNPSI_ITS ---
Subjective Subjective Date of Service: 10/03/22 Reason For Visit: Sandra Subjective Notes: 3 Day Interim History: Pt reviewed with the team Interactive in milieu, hyperactive at times. Well engaged, doing pushups in the corridor, very social. Continues to adjust to lithium titration Medication Compliance: Yes Side effects from medications: No Attending Groups: Intermittent Review of Systems Acute medical concerns: No Medical Review of Systems: unchanged Mental Status Exam Mental Status Exam Patient Appearance: Appropriate Patient Orientation: Person, Place, Time and Situation Level of Consciousness: Alert Patient Behavior: Appropriate, Talkative, Hyperactive, Cooperative and Good Eye Contact Mood Description: Cheerful and Elated Affect Description: Elated Patient Cognition Impaired: No Ability to Follow Directions: Good Speech Pattern: Spontaneous Speech Memory Description: Intact Hallucinations: None Delusions: Not Present Thought Process: Distracted Thought Content: positive for Circumstantial Judgement: Fair Diagnostics Vital Signs (24Hr): Vital Signs - 24 hr 10/03/22 08:30 10/03/22 17:00 Temperature 98.2 F 97.8 F Pulse Rate 129 H 95 Respiratory Rate 16 Blood Pressure 120/78 127/89 Pulse Oximetry 97 95 Oxygen Delivery Method Room Air Room Air BMI result Body Mass Index 25.3 Labs 09/28/22 06:44 09/30/22 08:51 Medications Medications Current Medications Acetaminophen (Acetaminophen 325 Mg Tablet) 650 mg PO Q6H PRN PRN Reason: Headache/Pain Mild Scale (1-3) Al Hydroxide/Mg Hydroxide (Magnesium Hydrox/Alum Hydrox 30 Ml Oral.Susp) 30 ml PO Q6H PRN PRN Reason: Heartburn/Nausea Diphenhydramine HCl (Diphenhydramine Hcl 25 Mg Capsule) 50 mg PO Q4H PRN PRN Reason: agitation Last Admin: 10/03/22 13:54 Dose: 50 mg Haloperidol (Haloperidol 5 Mg Tablet) 5 mg PO BID [facility] Last Admin: 10/03/22 08:21 Dose: 5 mg Haloperidol (Haloperidol 5 Mg Tablet) 5 mg PO Q4H PRN PRN Reason: agitation Hydroxyzine HCl (Hydroxyzine Hcl 25 Mg Tablet) 25 mg PO Q6H PRN PRN Reason: Anxiety Last Admin: 10/03/22 18:01 Dose: 25 mg [place] Carbonate ([place] Carbonate Er 450 Mg Tablet.Er) 900 mg PO BEDTIME [facility] Last Admin: 05/20/23 19:12 Dose: 900 mg Lorazepam (Lorazepam 1 Mg Tablet) 2 mg PO Q4H PRN PRN Reason: agitation Last Admin: 10/03/22 13:53 Dose: 2 mg Magnesium Hydroxide (Milk Of Magnesia 30 Ml Oral.Susp) 30 ml PO DAILY PRN PRN Reason: Constipation Melatonin (Melatonin 3 Mg Tablet) 3 mg PO BEDTIME PRN PRN Reason: insomnia Nicotine Polacrilex (Nicotine Polacrilex 2 Mg Gum) 4 mg BUCCAL Q2H PRN PRN Reason: Nicotine Cravings Trazodone HCl (Trazodone Hcl 50 Mg Tablet) 50 mg PO BEDTIME MRX1 PRN PRN Reason: Insomnia Last Admin: 10/03/22 03:01 Dose: 50 mg Allergies Allergies Allergy/AdvReac Type Severity Reaction Status Date / Time No Known Allergies Allergy Verified 09/08/22 18:54 Assessment & Plan Assessment & Plan (1) Bipolar I disorder: Status: Acute Code(s): F31.9 - Bipolar disorder, unspecified (2) Methamphetamine use disorder, severe: Status: Acute Code(s): F15.20 - Other stimulant dependence, uncomplicated Plan Pt is a 37 yo male with history Bipolar disorder, Methamphetamine abuse, recently discharged from on 09/23/22 who returns manic and psychotic in face of non-adherence with medications and relapse with Methamphetamine. -patient reports he only took some of the medications on discharge and relapsed with methamphetamine; he was visibly upset to hear of his behaviors that resulted in this admission; remains willing to take medication. Hospital course: 10/01 some hypomania but pt's behaviors seem overall more organized; signed a 3 day and says when can i go? pt has limited insight into illness and severity of meth addiction; continue current treatment plan 10/03/22 Continue current plan of care. Plan: 3 day Q 15 minute checks Continue Haldol 5 mg b.i.d. Copntinue lithium to 900 mg q.h.s. (patient was subtherapeutic on 600 mg) Haldol/Ativan/Benadryl p.r.n. for agitation Will get collateral from mother Informed Consent: understands Reason for continued inpatient stay Substantial Risk for: rapid decompensation Time Spent With Patient Time: Total time managing care of this patient today ____ minutes.
[2022-10-03] MEDS: Lithium Carbonate ER 450 MG TABLET.ER 900 MG PO (21:09)
[2022-10-03] MEDS: Melatonin 3 MG TABLET PO (21:12)
[2022-10-04 06:00] VITALS: BP 149/99; PULSE 125; RESP 16; TEMP 36; O2SAT 95
[2022-10-04] MEDS: HaloperidoL 5 MG TABLET PO ×2 (07:56→19:40)
[2022-10-04] MEDS: hydrOXYzine HCL 25 MG TABLET PO ×2 (08:39→17:45)
[2022-10-04] MEDS: LORazepam 1 MG TABLET 2 MG PO (12:11)
--- NOTE | 2022-10-04 13:47 | P.PNPSI_ITS ---
Subjective Subjective Date of Service: 10/04/22 Reason For Visit: Sandra Subjective Notes: 3 Day Interim History: Pt reviewed in team. Met with social sciences department chair and pt. Patient continues focused on discharge. Patient stated, I'm not going to see my friends who use drugs anymore. I'm going to get a job. I'll take the lithium and see the medication provider but I don't want to go to therapy or take any other medication . Patient reports he regrets what happened before being admitted to the hospital. Patient denies SI/HI/VH/AH at this time. Medication Compliance: Yes Side effects from medications: No Attending Groups: Yes Review of Systems Medical Review of Systems: unchanged Review of Systems Constitutional: Reports as per HPI Eyes: Reports as per HPI Reports as per HPI Cardiovascular: Reports as per HPI Respiratory: Reports as per HPI Gastrointestinal: Reports as per HPI Genitourinary: Reports as per HPI Musculoskeletal: Reports as per HPI Skin/Breast: Reports as per HPI Reports as per HPI Psychiatric: Reports as per HPI Endocrine: Reports as per HPI Hematologic/Lymphatic: Reports as per HPI Allergic/Immunologic: Reports as per HPI Mental Status Exam Mental Status Exam Narrative: Pt is alert and oriented; behavior is cooperative, calm; patient is not in distress; dressed in casual attire; mood is described as good and affect congruent; eye contact appropriate; Speech is normal rate, volume and prosody and not pressured; no psychomotor agitation/retardation present; thought process is organized and goal directed; Thought content is on tx; otherwise pertinent to relevant topics and without any delusional content, paranoid ideations or grandiosity; denies any SI/HI. There is no evidence of perceptual disturbance. Patients insight and judgment appears fair. Diagnostics Vital Signs (24Hr): Vital Signs - 24 hr 10/03/22 17:00 10/04/22 06:00 Temperature 97.8 F 96.8 F Pulse Rate 95 125 H Respiratory Rate 16 Blood Pressure 127/89 149/99 H Pulse Oximetry 95 95 Oxygen Delivery Method Room Air Room Air BMI result Body Mass Index 25.3 Labs 09/28/22 06:44 09/30/22 08:51 Medications Medications Current Medications Acetaminophen (Acetaminophen 325 Mg Tablet) 650 mg PO Q6H PRN PRN Reason: Headache/Pain Mild Scale (1-3) Al Hydroxide/Mg Hydroxide (Magnesium Hydrox/Alum Hydrox 30 Ml Oral.Susp) 30 ml PO Q6H PRN PRN Reason: Heartburn/Nausea Diphenhydramine HCl (Diphenhydramine Hcl 25 Mg Capsule) 50 mg PO Q4H PRN PRN Reason: agitation Last Admin: 10/03/22 13:54 Dose: 50 mg Haloperidol (Haloperidol 5 Mg Tablet) 5 mg PO BID PRASHANTH Last Admin: 10/04/22 07:56 Dose: 5 mg Haloperidol (Haloperidol 5 Mg Tablet) 5 mg PO Q4H PRN PRN Reason: agitation Hydroxyzine HCl (Hydroxyzine Hcl 25 Mg Tablet) 25 mg PO Q6H PRN PRN Reason: Anxiety Last Admin: 10/04/22 08:39 Dose: 25 mg [place] Carbonate ([place] Carbonate Er 450 Mg Tablet.Er) 900 mg PO BEDTIME PRASHANTH Last Admin: 10/03/22 21:09 Dose: 900 mg Lorazepam (Lorazepam 1 Mg Tablet) 2 mg PO Q4H PRN PRN Reason: agitation Last Admin: 10/04/22 12:11 Dose: 2 mg Magnesium Hydroxide (Milk Of Magnesia 30 Ml Oral.Susp) 30 ml PO DAILY PRN PRN Reason: Constipation Melatonin (Melatonin 3 Mg Tablet) 3 mg PO BEDTIME PRN PRN Reason: insomnia Last Admin: 10/03/22 21:12 Dose: 3 mg Nicotine Polacrilex (Nicotine Polacrilex 2 Mg Gum) 4 mg BUCCAL Q2H PRN PRN Reason: Nicotine Cravings Trazodone HCl (Trazodone Hcl 50 Mg Tablet) 50 mg PO BEDTIME MRX1 PRN PRN Reason: Insomnia Last Admin: 10/03/22 03:01 Dose: 50 mg Allergies Allergies Allergy/AdvReac Type Severity Reaction Status Date / Time No Known Allergies Allergy Verified 09/08/22 18:54 Assessment & Plan Assessment & Plan (1) Bipolar I disorder: Status: Acute Code(s): F31.9 - Bipolar disorder, unspecified (2) Methamphetamine use disorder, severe: Status: Acute Code(s): F15.20 - Other stimulant dependence, uncomplicated Plan Pt is a 37 yo male with history Bipolar disorder, Methamphetamine abuse, recently discharged from on 09/23/22 who returns manic and psychotic in face of non-adherence with medications and relapse with Methamphetamine. -patient reports he only took some of the medications on discharge and relapsed with methamphetamine; he was visibly upset to hear of his behaviors that resulted in this admission; remains willing to take medication. Hospital course: 10/01 some hypomania but pt's behaviors seem overall more organized; signed a 3 day and says when can i go? pt has limited insight into illness and severity of meth addiction; continue current treatment plan 10/03/22 Continue current plan of care. 10/04: Patient continues focused on discharged. Patient discussed his plan for treatment and how to stay on track once discharged. Patient reports he is Regretful of what happened before coming back here . Patient plans on continuing to take his medications and discontinuing his methamphetamine use. Patient reports he will only take lithium when discharged. Patient to be discharged tomorrow and picked up by mother. Plan: 3 day Q 15 minute checks DC Haldol 5 mg b.i.d. Copntinue lithium to 900 mg q.h.s. (patient was subtherapeutic on 600 mg) Haldol/Ativan/Benadryl p.r.n. for agitation Patient educated on: medication risk/benefits Informed Consent: further education needed Reason for continued inpatient stay Substantial Risk for: stable for discharge Time Spent With Patient Time: Total time managing care of this patient today ____ minutes.
[2022-10-04 19:20] VITALS: BP 137/85; PULSE 89; TEMP 36.8
[2022-10-04] MEDS: Lithium Carbonate ER 450 MG TABLET.ER 900 MG PO (19:38)
[2022-10-04] MEDS: Melatonin 3 MG TABLET PO (19:38)
[2022-10-04] MEDS: traZODone HCL 50 MG TABLET PO (21:26)
[2022-10-05 06:00] VITALS: BP 137/84; PULSE 70; RESP 16; TEMP 36.6
[2022-10-05] MEDS: LORazepam 1 MG TABLET 2 MG PO (07:00)
[2022-10-05] MEDS: HaloperidoL 5 MG TABLET PO (08:49)
--- NOTE | 2022-10-05 09:22 | PM.PSYDC ---
DS: Providers Provider Date of Service: 10/05/22 Date of admission: 09/29/22 20:37 Date of discharge: 10/05/22 Primary care physician: Unknown Physician Attending physician on admission: Gianfranco Emmanuel Attending physician on discharge: Shilpa Lara DS: Diagnosis Discharge Diagnosis (1) Bipolar I disorder: Status: Acute (2) Methamphetamine use disorder, severe: Status: Acute DS: Medications Discharge Medications Home Medications: Previous Rx's Medication Instructions Recorded lithium carbonate 450 mg 900 mg PO BEDTIME 30 days #60 tabs 10/04/22 tablet,extended release Mental Status Exam Mental Status Exam Narrative: Pt is alert and oriented; behavior is cooperative, friendly and calm; patient is not in distress; dressed in casual attire; mood is described as good ; eye contact appropriate; Speech is normal rate, volume and prosody and not pressured; no psychomotor agitation/retardation present; thought process is organized and goal directed; Thought content is on tx; otherwise pertinent to relevant topics and without any delusional content, paranoid ideations or grandiosity; denies any SI/HI. There is no evidence of perceptual disturbance.Patients insight and judgment appear fair. Data Data Completed and Pending Completed studies during hospitalization [Text1]: 09/28/22 09/28/22 09/28/22 09:59 09:59 09:59 Sodium Potassium Chloride Carbon Dioxide Anion Gap BUN Creatinine Estim Creat Clear Calc Estimated GFR Fasting Glucose Calcium Total Bilirubin AST ALT Alkaline Phosphatase Total Protein Albumin TSH Urine Color Dark Yellow Urine Appearance Clear Urine pH 5.5 Ur Specific [place] >= 1.030 H Urine Protein 30 (1+) H Urine Glucose (UA) Negative Urine Ketones Trace Urine Blood Trace H Urine Nitrite Negative Ur Leukocyte Esterase Small (1+) H Urine RBC 6-10 H Urine WBC 21-50 H Ur Squamous Epith Cells 0-2 Calcium Oxalate Crystal Present Urine Bacteria None Seen Hyaline Casts 3-5 Urine Opiates Screen Not Detected Urine Fentanyl Screen Not Detected Ur Barbiturates Screen Not Detected Ur Phencyclidine Scrn Not Detected Ur Amphetamines Screen POSITIVE H U Benzodiazepines Scrn Not Detected [place] Urine Cocaine Screen Not Detected U Marijuana (THC) Screen POSITIVE H Ref Lab Test Result SEE COMMENTS 09/29/22 09/30/22 10/05/22 08:00 08:51 08:35 Sodium 141 Potassium 4.3 Chloride 107 Carbon Dioxide 28 Anion Gap 10 L BUN 16 Pending Creatinine 0.99 Pending Estim Creat Clear Calc 85.2 Pending Estimated GFR > 60 Pending Fasting Glucose 111 H Calcium 9.9 Total Bilirubin 0.6 AST 25 ALT 35 Alkaline Phosphatase 103 Total Protein 6.8 Albumin 4.5 TSH Pending Urine Color Urine Appearance Urine pH Ur Specific [place] Urine Protein Urine Glucose (UA) Urine Ketones Urine Blood Urine Nitrite Ur Leukocyte Esterase Urine RBC Urine WBC Ur Squamous Epith Cells Calcium Oxalate Crystal Urine Bacteria Hyaline Casts Urine Opiates Screen Urine Fentanyl Screen Ur Barbiturates Screen Ur Phencyclidine Scrn Ur Amphetamines Screen U Benzodiazepines Scrn [place] 0.29 L Urine Cocaine Screen U Marijuana (THC) Screen Ref Lab Test Result 10/05/22 08:35 Sodium Potassium Chloride Carbon Dioxide Anion Gap BUN Creatinine Estim Creat Clear Calc Estimated GFR Fasting Glucose Calcium Total Bilirubin AST ALT Alkaline Phosphatase Total Protein Albumin TSH Urine Color Urine Appearance Urine pH Ur Specific [place] Urine Protein Urine Glucose (UA) Urine Ketones Urine Blood Urine Nitrite Ur Leukocyte Esterase Urine RBC Urine WBC Ur Squamous Epith Cells Calcium Oxalate Crystal Urine Bacteria Hyaline Casts Urine Opiates Screen Urine Fentanyl Screen Ur Barbiturates Screen Ur Phencyclidine Scrn Ur Amphetamines Screen U Benzodiazepines Scrn [place] Pending Urine Cocaine Screen U Marijuana (THC) Screen Ref Lab Test Result 09/28/22 Unknown Urine clean catch - Urine campos top Urine Culture - Final DS: Summary Hospital Course Hospital Course: Pt is a 37 yo male with history Bipolar disorder, Methamphetamine abuse, recently discharged from on 09/23/22 who returns manic and psychotic in face of non-adherence with medications and relapse with Methamphetamine. -patient reports he only took some of the medications on discharge and relapsed with methamphetamine; he was visibly upset to hear of his behaviors that resulted in this admission; remains willing to take medication. Hospital course: 10/01 some hypomania but pt's behaviors seem overall more organized; signed a 3 day and says when can i go? pt has limited insight into illness and severity of meth addiction; continue current treatment plan 10/03/22 Continue current plan of care. 10/04: Patient continues focused on discharged. Patient discussed his plan for treatment and how to stay on track once discharged. Patient reports he is Regretful of what happened before coming back here . Patient plans on continuing to take his medications and discontinuing his methamphetamine use. Patient reports he will only take lithium when discharged. Patient to be discharged tomorrow and picked up by mother. On discharge, patient reports feeling good . He no longer presents manic or with psychotic features. Patient is future and goal oriented. He is looking forward to leaving and attending his outpatient appointments. Patient stated, I'm going to stay away from meth and take the lithium . Patient is hoping he is able to maintain sobriety from substances, however, he knows that this is going to be difficult for him d/t his friends using methamphetamine and that he may relapse. Patient stated that if this was to occur he would reach out for help . Patient denies SI/HI/VH/AH at this time. Patient is stable and at baseline. While he inevitably remains at risk for relapse and mood dysregulation, this is a chronic issue which will not resolve with longer stay on inpatient unit but rather requires commitment to consistent outpatient treatment and sobriety with which patient has struggled to engage. At this time patient is organized in speech and behavior and returning to the stable environment where he lives with his supportive mother. Patient is not in imminent risk for harm to self or others. His 3 day notice is due and his request for discharge honored. Time spent discussing smoking cessation with patient: 3 to 10 minutes Status at Discharge Cognitive/behavioral status at discharge: Patient was interviewed prior to discharge and found to be fully oriented and without any SI or HI. Patient has insight and demonstrates good judgment in terms of wanting to pursue treatment. Patient is not in imminent risk of harm to self or others and has a safety plan that includes presenting to the closest ER or calling 911 if feeling unsafe. Patient has been observed closely by nursing and unit staff throughout admission; patient has not engaged in any behaviors that suggest dangerousness to self or others and has demonstrated appropriate behaviors and impulse control. Functional status at discharge: independent ambulation Overall status at discharge: patient is back to baseline Time Spent with Patient Time attestation: Total time managing care of this patient today ____ minutes. Time spent: Greater than 30 minutes Discharge Plan Discharge Anticipated Discharge Date/Time: 10/05/22 11:00 Patient Disposition: Home, Self-Care Discharge Diagnosis: Bipolar d/o, methamphetamine use d/o Referrals: [facility] w Maria Elena Saul [Other] - 10/19/22 11:00 am [facility] w [facility] Young[facility] [Other] - 10/15/22 2:00 pm (After your first session, Dr. Youngblood will put in a referral for you to be seen at the [facility]. ) Physician,Unknown J [Primary Care Provider] - 1 Week Discharge Medications: New lithium carbonate 450 mg Tablet Extended Release 900 mg PO BEDTIME 30 Days Qty: 60 0RF Discontinued haloperidol 5 mg Tablet 5 mg PO BID PRN (Reason: Agitation) diphenhydramine HCl 50 mg Tablet 50 mg PO Q6H PRN (Reason: eps) clonazepam 0.5 mg Tablet 0.25 mg PO BID@0830,1430 lithium carbonate 300 mg Tablet Extended Release 300 mg PO BID hydroxyzine HCl 25 mg Tablet 25 mg PO Q6H PRN (Reason: Anxiety) lorazepam 1 mg Tablet 1 mg PO TID PRN (Reason: Anxiety) loratadine 10 mg Tablet 10 mg PO DAILY Discharge Orders: Discharge Order (Routine); Ordered 10/04/22 Ordered By: Shilpa Lara Diet: Regular diet Activity on Discharge: As tolerated Stand Alone Forms: Patient Portal Discharge page Care Plan Goals: Maintain mood and safe behaviors Take medications as prescribed Continue to pursue sobriety Practice coping skills Continue with outpatient providers and reach out to them as needed Health Concerns: Mood stability and behaviors Sobriety Plan of Treatment: Follow up with your PCP, psychiatric provider and other outpatient providers regarding above concerns Take medications as prescribed Assessment: Risk assessment at time of discharge: Patient was interviewed prior to discharge and found to be fully oriented and without any SI or HI. Patient has insight and demonstrates good judgment in terms of wanting to pursue treatment. Patient is not in imminent risk of harm to self or others and has a safety plan that includes presenting to the closest ER or calling 911 if feeling unsafe. Patient has been observed closely by nursing and unit staff throughout admission; patient has not engaged in any behaviors that suggest dangerousness to self or others and has demonstrated appropriate behaviors and impulse control Discharge Date/Time: 10/05/22 11:08
[2022-10-05 09:48] LABS: Lithium 0.64 mmol/L (0.60-1.20)
[2022-10-05 09:59] LABS: Blood Urea Nitrogen 19 mg/dL (9-16); Creatinine Clr Calc Pharmacy 95.4; Estimated Glomerular Filt Rate > 60
[2022-10-05 10:19] LABS: TSH reflex Free T4 3.25 uIU/mL (0.32-4.0)
== END 2022-10-05 11:08 | disposition home or self-care (01) | DRG 885 ==
LOC: HO.ED 09-28 06:48 → HO.PM5 09-29 20:42
PROVIDERS: Physician Assistant; Psychiatry & Neurology Psychiatry; Admitting Provider Psychiatry & Neurology Psychiatry; Emergency Provider Internal Medicine; Visit Provider Registered Nurse
DX: F31.9 Bipolar disorder, unspecified (principal); R45.851 Suicidal ideations; F15.20 Other stimulant dependence, uncomplicated; Z20.822 Contact with and (suspected) exposure to COVID-19
CPT/HCPCS: 36415; 80053; 80143; 80178; 80179; 80307; 81001; 82550; 82565; 83735; 84443; 84484; 84520; 85025; 87086; 87635; 93005; 99285; J1200; J2060; S9485

== ENCOUNTER → 2022-09-29 20:37 | Outpatient (BNV) | payer OTHER, SELFPAY | PROVIDERS: Admitting Provider Psychiatry & Neurology Psychiatry; Emergency Provider Internal Medicine; Visit Provider Psychiatry & Neurology Psychiatry | DX: F31.9 Bipolar disorder, unspecified (principal); F15.20 Other stimulant dependence, uncomplicated | CPT/HCPCS: 90792; 99231; 99232; 99239; 99285 ==